=== PATIENT | male | born 1955 | race Two or more races ===

== ENCOUNTER 2021-06-16 12:29 | Inpatient (IN) | payer OTHER ==
[~2021-06-16] VITALS: Ht 177.8 cm; Wt 86.6 kg
[2021-06-16 13:26] LABS: Basophils # (auto) 0 10 ^3/uL (0-0.2); Basophils % (auto) 0.2 % (0.0-2.0); Eosinophils # (auto) 0 10 ^3/uL (0-0.8); Hematocrit 39.2 % (41.0-53.0); Hemoglobin 13.7 g/dL (13.5-17.5); Lymphocytes # (auto) 0.4 10 ^3/uL (0.4-5.4); Lymphocytes % (auto) 6.5 % (10.0-50.0); Mean Corpuscular Hemoglobin 29.4 pg (28.0-32.0); Mean Corpuscular Hgb Conc. 34.9 g/dL (32.0-36.0); Mean Corpuscular Volume 84.4 fL (80.0-100.0); Monocytes # (auto) 0.3 10 ^3/uL (0-1.3); Monocytes % (auto) 5.1 % (0.0-12.0); Neutrophils # (auto) 5.7 10 ^3/uL (1.6-8.6); Neutrophils % (auto) 88.2 % (37.0-80.0); Red Blood Cells 4.64 10^6/uL (4.5-5.90); Red Cell Distribution Width 13.8 % (11.8-14.3); White Blood Cell 6.5 10^3/uL (4.4-10.8)
[2021-06-16 13:49] LABS: Albumin 2.7 g/dL (3.4-5.0); Calcium 8.5 mg/dL (8.5-10.1); Magnesium 3.3 mg/dL (1.6-2.6); Potassium 3.9 mmol/L (3.5-5.1)
[2021-06-16 13:52] LABS: Lactic Acid w/Reflex 2.5 mmol/L (0.4-2.0)
[2021-06-16 13:54] LABS: BUN/Creatinine Ratio 28.7; Bilirubin, Total 0.8 mg/dL (0.2-1.0); Total Protein 8.1 g/dL (6.4-8.2)
[2021-06-16] MEDS ORDERED: ACETAMINOPHEN 500 MG TAB PO ONE (14:30)
[2021-06-16] MEDS ORDERED: REGENERON 1200mg/250ml NS 250 ML IV ONE (16:15)
[2021-06-16] MEDS ORDERED: MORPHINE SULFATE INJECTION 2 MG/ML SYRG IV PRN (19:30)
[2021-06-16] MEDS ORDERED: hydrALAZINE HCL 20 MG/ML VL IV PRN (19:30)
[2021-06-16] MEDS ORDERED: ONDANSETRON HCL 4 MG/2 ML VIAL IV PRN (19:30)
[2021-06-16] MEDS ORDERED: REMDESIVIR PER PHARMACY 0 ML IV SCH (19:30)
[2021-06-16] MEDS ORDERED: NITROGLYCERIN 0.4 MG SL TAB SL PRN (19:30)
[2021-06-16] MEDS ORDERED: REMDESIVIR 200 MG in NS 210ml LOADING DOSE ADULT IV ONE (20:30)
[2021-06-16 21:17] VITALS: BP 105/66
[2021-06-16] MEDS: BUDESONIDE (INHALATION) 180 MCG IH IN SCH (22:00)
[2021-06-16] MEDS: ENOXAPARIN SOD 40 MG/0.4 ML SYRINGE SC SCH (22:22)
[2021-06-16] MEDS: ALBUTEROL SULF HFA 90MCG INH 200DOSE IN PRN (22:46)
[2021-06-17] MEDS: ACETAMINOPHEN 500 MG TAB PO PRN (06:39)
[2021-06-17] MEDS: cefTRIAXone 1GM/50ML D5W 50 ML IV SCH (09:03)
[2021-06-17] MEDS: BUDESONIDE (INHALATION) 180 MCG IH IN SCH ×2 (09:18→18:32)
[2021-06-17] MEDS: ALBUTEROL SULF HFA 90MCG INH 200DOSE IN PRN ×2 (09:19→19:26)
[2021-06-17 09:56] LABS: Basophils # (auto) 0 10 ^3/uL (0-0.2); Basophils % (auto) 0.2 % (0.0-2.0); Eosinophils # (auto) 0 10 ^3/uL (0-0.8); Hematocrit 34.9 % (41.0-53.0); Hemoglobin 12.1 g/dL (13.5-17.5); Lymphocytes # (auto) 0.5 10 ^3/uL (0.4-5.4); Lymphocytes % (auto) 7.1 % (10.0-50.0); Mean Corpuscular Hgb Conc. 34.5 g/dL (32.0-36.0); Monocytes # (auto) 0.2 10 ^3/uL (0-1.3); Monocytes % (auto) 2.9 % (0.0-12.0); Neutrophils # (auto) 6.4 10 ^3/uL (1.6-8.6); Neutrophils % (auto) 89.8 % (37.0-80.0); Red Blood Cells 4.16 10^6/uL (4.5-5.90); Red Cell Distribution Width 13.7 % (11.8-14.3); White Blood Cell 7.2 10^3/uL (4.4-10.8)
[2021-06-17] MEDS: DexAMETHasone SOD PHOS 10MG/1ML VIAL INJ IV SCH (10:23)
[2021-06-17] MEDS: AZITHROMYCIN 500MG/ 250ML 250 ML IV SCH (10:23)
[2021-06-17] MEDS: PANTOPRAZOLE 40 MG TAB PO SCH (10:23)
[2021-06-17] MEDS: ZINC SULFATE 220mg CAP or TAB PO SCH (10:23)
[2021-06-17] MEDS: ASCORBIC ACID 1,000 MG TAB PO SCH (10:23)
[2021-06-17] MEDS: CHOLECALCIFEROL (VITD3) 2,000 UNIT CAP/TAB PO SCH (10:24)
[2021-06-17] MEDS: ENOXAPARIN SOD 40 MG/0.4 ML SYRINGE SC SCH ×2 (10:24→22:33)
[2021-06-17 10:51] LABS: Calcium 7.9 mg/dL (8.5-10.1); Potassium 3.7 mmol/L (3.5-5.1)
[2021-06-17 11:03] LABS: BUN/Creatinine Ratio 32.6; Bilirubin, Total 0.6 mg/dL (0.2-1.0); CRP High Sensitivity 13.2 mg/dL (< 0.3); Total Protein 6.9 g/dL (6.4-8.2)
[2021-06-17 11:29] LABS: Thyroid Stimulating Hormone 1.05 uIU/mL (0.358-3.74)
[2021-06-17] MEDS: REMDESIVIR 100mg 100 MG in SODIUM CHL 0.9% 230 ML IV SCH (14:33)
[2021-06-17 22:00] VITALS: BP 104/61
[2021-06-17] MEDS ORDERED: TOCILIZUMAB 400 MG in SODIUM CHL 0.9% 80 ML IV SCH (22:00)
[2021-06-18 05:00] VITALS: BP 120/71
[2021-06-18] MEDS: ALBUTEROL SULF HFA 90MCG INH 200DOSE IN PRN ×2 (06:11→19:46)
[2021-06-18] MEDS: BUDESONIDE (INHALATION) 180 MCG IH IN SCH ×2 (06:11→18:58)
[2021-06-18 06:21] LABS: Albumin 2.1 g/dL (3.4-5.0); Calcium 7.9 mg/dL (8.5-10.1); Potassium 3.7 mmol/L (3.5-5.1)
[2021-06-18 06:26] LABS: BUN/Creatinine Ratio 32.1; Bilirubin, Total 0.7 mg/dL (0.2-1.0); Total Protein 6.3 g/dL (6.4-8.2)
[2021-06-18 08:00] VITALS: BP 117/65
[2021-06-18 09:00] VITALS: BP 117/65
[2021-06-18] MEDS: DexAMETHasone SOD PHOS 10MG/1ML VIAL INJ IV SCH (10:31)
[2021-06-18] MEDS: cefTRIAXone 1GM/50ML D5W 50 ML IV SCH (10:31)
[2021-06-18] MEDS: AZITHROMYCIN 500MG/ 250ML 250 ML IV SCH (10:31)
[2021-06-18] MEDS: FUROSEMIDE 20 MG/2 ML VIAL IV SCH (10:31)
[2021-06-18] MEDS: ASCORBIC ACID 1,000 MG TAB PO SCH (10:32)
[2021-06-18] MEDS: CHOLECALCIFEROL (VITD3) 2,000 UNIT CAP/TAB PO SCH (10:32)
[2021-06-18] MEDS: PANTOPRAZOLE 40 MG TAB PO SCH (10:32)
[2021-06-18] MEDS: IVERMECTIN 3 MG TAB PO SCH (10:32)
[2021-06-18] MEDS: ZINC SULFATE 220mg CAP or TAB PO SCH (10:32)
[2021-06-18] MEDS: POTASSIUM CHL 10 Meq TABLET PO SCH (10:32)
[2021-06-18] MEDS: ENOXAPARIN SOD 40 MG/0.4 ML SYRINGE SC SCH ×2 (10:33→21:26)
[2021-06-18 12:31] VITALS: BP 106/75
[2021-06-18] MEDS: REMDESIVIR 100mg 100 MG in SODIUM CHL 0.9% 230 ML IV SCH (15:00)
[2021-06-18 16:31] VITALS: BP 102/63
[2021-06-18 22:12] VITALS: BP 100/69
[2021-06-19 05:31] VITALS: BP 102/54
[2021-06-19] MEDS: ALBUTEROL SULF HFA 90MCG INH 200DOSE IN PRN ×2 (05:58→22:43)
[2021-06-19] MEDS: BUDESONIDE (INHALATION) 180 MCG IH IN SCH ×2 (05:58→22:34)
[2021-06-19 06:42] LABS: Albumin 2.3 g/dL (3.4-5.0); Potassium 4.2 mmol/L (3.5-5.1)
[2021-06-19 06:48] LABS: BUN/Creatinine Ratio 39.3; Bilirubin, Total 0.7 mg/dL (0.2-1.0); Total Protein 6.2 g/dL (6.4-8.2)
[2021-06-19 08:00] VITALS: BP 111/72
[2021-06-19 09:12] VITALS: BP 111/72
[2021-06-19] MEDS: DexAMETHasone SOD PHOS 10MG/1ML VIAL INJ IV SCH (10:51)
[2021-06-19] MEDS: cefTRIAXone 1GM/50ML D5W 50 ML IV SCH (10:51)
[2021-06-19] MEDS: ZINC SULFATE 220mg CAP or TAB PO SCH (10:52)
[2021-06-19] MEDS: FUROSEMIDE 20 MG/2 ML VIAL IV SCH (10:52)
[2021-06-19] MEDS: IVERMECTIN 3 MG TAB PO SCH (10:53)
[2021-06-19] MEDS: POTASSIUM CHL 10 Meq TABLET PO SCH (10:53)
[2021-06-19] MEDS: PANTOPRAZOLE 40 MG TAB PO SCH (10:53)
[2021-06-19] MEDS: ASCORBIC ACID 1,000 MG TAB PO SCH (10:54)
[2021-06-19] MEDS: CHOLECALCIFEROL (VITD3) 2,000 UNIT CAP/TAB PO SCH (10:54)
[2021-06-19] MEDS: ENOXAPARIN SOD 40 MG/0.4 ML SYRINGE SC SCH ×2 (10:54→21:38)
[2021-06-19] MEDS: AZITHROMYCIN 500MG/ 250ML 250 ML IV SCH (12:25)
[2021-06-19 13:00] VITALS: BP 134/69
[2021-06-19] MEDS: REMDESIVIR 100mg 100 MG in SODIUM CHL 0.9% 230 ML IV SCH (14:58)
[2021-06-19 16:39] VITALS: BP 100/75
[2021-06-19 22:00] VITALS: BP 112/74
[2021-06-20 02:41] VITALS: BP 112/74
[2021-06-20 05:30] VITALS: BP 132/77
[2021-06-20] MEDS: ACETAMINOPHEN 500 MG TAB PO PRN (05:30)
[2021-06-20] MEDS: ALBUTEROL SULF HFA 90MCG INH 200DOSE IN PRN ×2 (05:44→22:50)
[2021-06-20] MEDS: BUDESONIDE (INHALATION) 180 MCG IH IN SCH ×2 (05:44→21:32)
[2021-06-20 06:30] LABS: Basophils # (auto) 0 10 ^3/uL (0-0.2); Basophils % (auto) 0.2 % (0.0-2.0); Eosinophils # (auto) 0 10 ^3/uL (0-0.8); Eosinophils % (auto) 0.2 % (0.0-7.0); Hematocrit 43.3 % (41.0-53.0); Hemoglobin 13.2 g/dL (13.5-17.5); Lymphocytes % (auto) 7.9 % (10.0-50.0); Mean Corpuscular Hemoglobin 28.4 pg (28.0-32.0); Mean Corpuscular Hgb Conc. 30.4 g/dL (32.0-36.0); Mean Corpuscular Volume 93.5 fL (80.0-100.0); Monocytes # (auto) 0.4 10 ^3/uL (0-1.3); Monocytes % (auto) 3.1 % (0.0-12.0); Neutrophils # (auto) 10.8 10 ^3/uL (1.6-8.6); Neutrophils % (auto) 88.6 % (37.0-80.0); Nucleated Red Blood Cells % 0.3 %; Red Blood Cells 4.63 10^6/uL (4.5-5.90); Red Cell Distribution Width 15.5 % (11.8-14.3); White Blood Cell 12.2 10^3/uL (4.4-10.8)
[2021-06-20 06:46] LABS: Chloride 104 mmol/L (98-107); Potassium 4.7 mmol/L (3.5-5.1); Sodium 135 mmol/L (136-145)
[2021-06-20 06:59] LABS: Alanine Aminotransferase 55 U/L (16-61); Albumin 2.2 g/dL (3.4-5.0); Alkaline Phosphatase 75 U/L (45-117); Aspartate Aminotransferase 97 U/L (15-37); BUN/Creatinine Ratio 32.9; Bilirubin, Total 0.9 mg/dL (0.2-1.0); Blood Urea Nitrogen 27 mg/dL (7-18); Calcium 7.7 mg/dL (8.5-10.1); Carbon Dioxide 21 mmol/L (21-32); GFR African American 122 mL/min; GFR Non-African American 101 mL/min; Glucose 68 mg/dL (74-106); Total Protein 6.4 g/dL (6.4-8.2)
[2021-06-20 07:09] LABS: Anion Gap 10 (5-15)
[2021-06-20 09:00] VITALS: BP 104/67
[2021-06-20] MEDS: cefTRIAXone 1GM/50ML D5W 50 ML IV SCH (09:00)
[2021-06-20] MEDS: DexAMETHasone SOD PHOS 10MG/1ML VIAL INJ IV SCH (10:24)
[2021-06-20] MEDS: CHOLECALCIFEROL (VITD3) 2,000 UNIT CAP/TAB PO SCH (10:25)
[2021-06-20] MEDS: ASCORBIC ACID 1,000 MG TAB PO SCH (10:25)
[2021-06-20] MEDS: PANTOPRAZOLE 40 MG TAB PO SCH (10:25)
[2021-06-20] MEDS: IVERMECTIN 3 MG TAB PO SCH (10:25)
[2021-06-20] MEDS: FUROSEMIDE 20 MG/2 ML VIAL IV SCH ×2 (10:25→18:00)
[2021-06-20] MEDS: POTASSIUM CHL 10 Meq TABLET PO SCH (10:25)
[2021-06-20] MEDS: AZITHROMYCIN 500MG/ 250ML 250 ML IV SCH (10:25)
[2021-06-20] MEDS: ZINC SULFATE 220mg CAP or TAB PO SCH (10:25)
[2021-06-20] MEDS: ENOXAPARIN SOD 40 MG/0.4 ML SYRINGE SC SCH ×2 (10:25→22:20)
[2021-06-20 10:31] LABS: CRP High Sensitivity > 0.950 mg/dL (< 0.3)
[2021-06-20 13:00] VITALS: BP 127/74
[2021-06-20] MEDS: REMDESIVIR 100mg 100 MG in SODIUM CHL 0.9% 230 ML IV SCH (15:00)
[2021-06-20 17:00] VITALS: BP 129/68
[2021-06-20] MEDS: HYOSCYAMINE SULF 0.125 MG ODT TAB PO PRN (19:07)
[2021-06-20 22:04] VITALS: BP 116/66
[2021-06-20] MEDS: SALINE 0.65 % NASAL SPRAY 45ML BOTTLE EACHNOSTRI SCH (22:20)
[2021-06-21 05:00] VITALS: BP 132/73
[2021-06-21] MEDS: SALINE 0.65 % NASAL SPRAY 45ML BOTTLE EACHNOSTRI SCH ×4 (06:04→21:39)
[2021-06-21] MEDS: MORPHINE SULFATE INJECTION 2 MG/ML SYRG IV PRN ×2 (06:05→21:39)
[2021-06-21] MEDS: FUROSEMIDE 20 MG/2 ML VIAL IV SCH ×2 (06:30→18:10)
[2021-06-21 07:50] LABS: Albumin 2.4 g/dL (3.4-5.0); Calcium 8.2 mg/dL (8.5-10.1); Potassium 4.4 mmol/L (3.5-5.1)
[2021-06-21 07:55] LABS: BUN/Creatinine Ratio 32.1; Bilirubin, Total 0.8 mg/dL (0.2-1.0); Total Protein 6.7 g/dL (6.4-8.2)
[2021-06-21] MEDS: ALBUTEROL SULF HFA 90MCG INH 200DOSE IN PRN ×2 (08:35→19:20)
[2021-06-21] MEDS: BUDESONIDE (INHALATION) 180 MCG IH IN SCH ×2 (08:35→19:20)
[2021-06-21] MEDS: DexAMETHasone SOD PHOS 10MG/1ML VIAL INJ IV SCH (08:40)
[2021-06-21] MEDS: ZINC SULFATE 220mg CAP or TAB PO SCH (08:40)
[2021-06-21] MEDS: cefTRIAXone 1GM/50ML D5W 50 ML IV SCH (08:40)
[2021-06-21] MEDS: POTASSIUM CHL 10 Meq TABLET PO SCH (08:41)
[2021-06-21] MEDS: PANTOPRAZOLE 40 MG TAB PO SCH (08:42)
[2021-06-21] MEDS: CHOLECALCIFEROL (VITD3) 2,000 UNIT CAP/TAB PO SCH (08:43)
[2021-06-21] MEDS: IVERMECTIN 3 MG TAB PO SCH (08:43)
[2021-06-21] MEDS: ASCORBIC ACID 1,000 MG TAB PO SCH (08:43)
[2021-06-21] MEDS: ENOXAPARIN SOD 40 MG/0.4 ML SYRINGE SC SCH (08:43)
[2021-06-21 09:00] VITALS: BP 137/70
[2021-06-21] MEDS: AZITHROMYCIN 500MG/ 250ML 250 ML IV SCH (10:00)
[2021-06-21 13:00] VITALS: BP 115/67
[2021-06-21 16:56] VITALS: BP 138/79
[2021-06-21] MEDS: REMDESIVIR 100mg 100 MG in SODIUM CHL 0.9% 230 ML IV SCH (16:59)
[2021-06-21] MEDS: DOCUSATE CALCIUM 240 MG CAP PO PRN (18:13)
[2021-06-21] MEDS: HYOSCYAMINE SULF 0.125 MG ODT TAB PO PRN (21:38)
[2021-06-21] MEDS: ENOXAPARIN SOD 100 MG/1 ML SYRINGE SC SCH (21:39)
[2021-06-21 22:00] VITALS: BP 163/74
[2021-06-22] MEDS: MORPHINE SULFATE INJECTION 2 MG/ML SYRG IV PRN ×2 (01:17→05:08)
[2021-06-22 05:00] VITALS: BP 136/65
[2021-06-22] MEDS: SALINE 0.65 % NASAL SPRAY 45ML BOTTLE EACHNOSTRI SCH ×4 (05:02→21:20)
[2021-06-22] MEDS: FUROSEMIDE 20 MG/2 ML VIAL IV SCH ×2 (05:08→17:27)
[2021-06-22 09:00] VITALS: BP 134/63
[2021-06-22 09:55] VITALS: BP 136/65
[2021-06-22] MEDS: cefTRIAXone 1GM/50ML D5W 50 ML IV SCH (11:12)
[2021-06-22] MEDS: POTASSIUM CHL 10 Meq TABLET PO SCH (11:13)
[2021-06-22] MEDS: DexAMETHasone SOD PHOS 10MG/1ML VIAL INJ IV SCH (11:13)
[2021-06-22] MEDS: PANTOPRAZOLE 40 MG TAB PO SCH (11:13)
[2021-06-22] MEDS: ZINC SULFATE 220mg CAP or TAB PO SCH (11:13)
[2021-06-22] MEDS: ASCORBIC ACID 1,000 MG TAB PO SCH (11:14)
[2021-06-22] MEDS: IVERMECTIN 3 MG TAB PO SCH (11:14)
[2021-06-22] MEDS: ENOXAPARIN SOD 100 MG/1 ML SYRINGE SC SCH ×2 (11:14→21:20)
[2021-06-22] MEDS: CHOLECALCIFEROL (VITD3) 2,000 UNIT CAP/TAB PO SCH (11:14)
[2021-06-22 13:00] VITALS: BP 137/78
[2021-06-22] MEDS: BUDESONIDE (INHALATION) 180 MCG IH IN SCH ×2 (15:23→19:16)
[2021-06-22] MEDS: ALBUTEROL SULF HFA 90MCG INH 200DOSE IN PRN ×2 (15:23→20:59)
[2021-06-22 16:56] VITALS: BP 137/64
[2021-06-22 22:00] VITALS: BP 147/76
[2021-06-23] VITALS (7 sets, daily range): BP systolic 106–147; BP diastolic 69–93
[2021-06-23] MEDS: FUROSEMIDE 20 MG/2 ML VIAL IV SCH (06:11)
[2021-06-23] MEDS: SALINE 0.65 % NASAL SPRAY 45ML BOTTLE EACHNOSTRI SCH ×4 (06:11→21:46)
[2021-06-23] MEDS: ALBUTEROL SULF HFA 90MCG INH 200DOSE IN PRN ×2 (07:19→19:11)
[2021-06-23] MEDS: BUDESONIDE (INHALATION) 180 MCG IH IN SCH ×2 (07:19→18:50)
[2021-06-23 07:20] LABS: Calcium 8.5 mg/dL (8.5-10.1); Potassium 4.6 mmol/L (3.5-5.1)
[2021-06-23 07:22] LABS: BUN/Creatinine Ratio 31.4
[2021-06-23 07:40] LABS: Basophils # (auto) 0 10 ^3/uL (0-0.2); Basophils % (auto) 0.2 % (0.0-2.0); Eosinophils # (auto) 0 10 ^3/uL (0-0.8); Eosinophils % (auto) 0.2 % (0.0-7.0); Hematocrit 42.3 % (41.0-53.0); Lymphocytes # (auto) 0.7 10 ^3/uL (0.4-5.4); Lymphocytes % (auto) 5.2 % (10.0-50.0); Mean Corpuscular Hemoglobin 27.9 pg (28.0-32.0); Mean Corpuscular Volume 84.6 fL (80.0-100.0); Monocytes # (auto) 0.2 10 ^3/uL (0-1.3); Monocytes % (auto) 1.3 % (0.0-12.0); Neutrophils # (auto) 13.1 10 ^3/uL (1.6-8.6); Neutrophils % (auto) 93.1 % (37.0-80.0); Nucleated Red Blood Cells % 0.3 %; Red Cell Distribution Width 13.8 % (11.8-14.3); White Blood Cell 14.1 10^3/uL (4.4-10.8)
[2021-06-23] MEDS: cefTRIAXone 1GM/50ML D5W 50 ML IV SCH (09:18)
[2021-06-23] MEDS: PANTOPRAZOLE 40 MG TAB PO SCH (10:15)
[2021-06-23] MEDS: ASCORBIC ACID 1,000 MG TAB PO SCH (10:15)
[2021-06-23] MEDS: DexAMETHasone SOD PHOS 10MG/1ML VIAL INJ IV SCH (10:15)
[2021-06-23] MEDS: POTASSIUM CHL 10 Meq TABLET PO SCH (10:15)
[2021-06-23] MEDS: ZINC SULFATE 220mg CAP or TAB PO SCH (10:15)
[2021-06-23] MEDS: CHOLECALCIFEROL (VITD3) 2,000 UNIT CAP/TAB PO SCH (10:16)
[2021-06-23] MEDS: ENOXAPARIN SOD 100 MG/1 ML SYRINGE SC SCH (10:16)
[2021-06-23] MEDS ORDERED: LORazepam 0.5 MG TAB PO PRN (12:45)
[2021-06-23] MEDS: LACTULOSE 20Gm/30ML SOLN PO ONE (13:17)
[2021-06-23] MEDS: APIXABAN 5 MG TAB PO SCH (21:46)
[2021-06-24] MEDS: LACTULOSE 20Gm/30ML SOLN PO ONE (00:29)
[2021-06-24 05:00] VITALS: BP 152/84
[2021-06-24] MEDS: SALINE 0.65 % NASAL SPRAY 45ML BOTTLE EACHNOSTRI SCH ×4 (06:28→22:00)
[2021-06-24] MEDS: DOCUSATE CALCIUM 240 MG CAP PO PRN (06:44)
[2021-06-24 09:10] VITALS: BP 147/86
[2021-06-24] MEDS: DexAMETHasone SOD PHOS 10MG/1ML VIAL INJ IV SCH (09:47)
[2021-06-24] MEDS: FUROSEMIDE 20 MG/2 ML VIAL IV SCH (09:47)
[2021-06-24] MEDS: cefTRIAXone 1GM/50ML D5W 50 ML IV SCH (09:47)
[2021-06-24] MEDS: ZINC SULFATE 220mg CAP or TAB PO SCH (09:48)
[2021-06-24] MEDS: PANTOPRAZOLE 40 MG TAB PO SCH (09:48)
[2021-06-24] MEDS: ASCORBIC ACID 1,000 MG TAB PO SCH (09:48)
[2021-06-24] MEDS: APIXABAN 5 MG TAB PO SCH ×2 (09:48→22:08)
[2021-06-24] MEDS: CHOLECALCIFEROL (VITD3) 2,000 UNIT CAP/TAB PO SCH (09:48)
[2021-06-24] MEDS: POTASSIUM CHL 10 Meq TABLET PO SCH (09:49)
[2021-06-24] MEDS: BUDESONIDE (INHALATION) 180 MCG IH IN SCH (10:00)
[2021-06-24] MEDS ORDERED: LACTULOSE 20Gm/30ML SOLN PO PRN (10:00)
[2021-06-24 12:00] VITALS: BP 147/86
[2021-06-24] MEDS ORDERED: LORazepam 2MG/ML-1ML VIAL IV ONE (12:30)
[2021-06-24 14:12] VITALS: BP 145/89
[2021-06-24 17:26] VITALS: BP 144/78
[2021-06-24] MEDS ORDERED: BUDESONIDE (INHALATION) 0.5 MG/2 ML NEB ONE (19:08)
[2021-06-24] MEDS ORDERED: ALBUTEROL SULF 2.5 MG/0.5ML(0.5%) NEB SOLN ONE (19:08)
[2021-06-24] MEDS: BUDESONIDE (INHALATION) 0.5 MG/2 ML NEB NEB SCH (20:10)
[2021-06-24] MEDS: ALBUTEROL SULF 2.5 MG/0.5ML(0.5%) NEB SOLN NEB PRN (20:11)
[2021-06-24 22:00] VITALS: BP 135/69
[2021-06-25 05:00] VITALS: BP 138/77
[2021-06-25] MEDS: SALINE 0.65 % NASAL SPRAY 45ML BOTTLE EACHNOSTRI SCH ×4 (06:00→22:00)
[2021-06-25] MEDS: ALBUTEROL SULF 2.5 MG/0.5ML(0.5%) NEB SOLN NEB PRN ×2 (06:06→22:31)
[2021-06-25] MEDS: BUDESONIDE (INHALATION) 0.5 MG/2 ML NEB NEB SCH ×2 (06:06→22:24)
[2021-06-25 06:52] LABS: Basophils # (auto) 0 10 ^3/uL (0-0.2); Basophils % (auto) 0.1 % (0.0-2.0); Eosinophils # (auto) 0 10 ^3/uL (0-0.8); Eosinophils % (auto) 0.2 % (0.0-7.0); Hematocrit 41.6 % (41.0-53.0); Hemoglobin 13.9 g/dL (13.5-17.5); Lymphocytes # (auto) 0.5 10 ^3/uL (0.4-5.4); Lymphocytes % (auto) 4.2 % (10.0-50.0); Mean Corpuscular Hemoglobin 27.9 pg (28.0-32.0); Mean Corpuscular Hgb Conc. 33.3 g/dL (32.0-36.0); Monocytes # (auto) 0.3 10 ^3/uL (0-1.3); Monocytes % (auto) 2.3 % (0.0-12.0); Neutrophils # (auto) 12.2 10 ^3/uL (1.6-8.6); Neutrophils % (auto) 93.2 % (37.0-80.0); Nucleated Red Blood Cells % 0.2 %; Red Blood Cells 4.96 10^6/uL (4.5-5.90); Red Cell Distribution Width 13.8 % (11.8-14.3); White Blood Cell 13.1 10^3/uL (4.4-10.8)
[2021-06-25 07:03] LABS: Potassium 4.5 mmol/L (3.5-5.1)
[2021-06-25 07:09] LABS: BUN/Creatinine Ratio 43.3; Calcium 8.1 mg/dL (8.5-10.1)
[2021-06-25 08:00] VITALS: BP 138/91
[2021-06-25] MEDS: DexAMETHasone SOD PHOS 10MG/1ML VIAL INJ IV SCH (09:18)
[2021-06-25] MEDS: cefTRIAXone 1GM/50ML D5W 50 ML IV SCH (09:18)
[2021-06-25] MEDS: FUROSEMIDE 20 MG/2 ML VIAL IV SCH (09:18)
[2021-06-25] MEDS: POTASSIUM CHL 10 Meq TABLET PO SCH (09:19)
[2021-06-25] MEDS: ZINC SULFATE 220mg CAP or TAB PO SCH (09:19)
[2021-06-25] MEDS: APIXABAN 5 MG TAB PO SCH (09:19)
[2021-06-25] MEDS: PANTOPRAZOLE 40 MG TAB PO SCH (09:19)
[2021-06-25] MEDS: ASCORBIC ACID 1,000 MG TAB PO SCH (09:19)
[2021-06-25] MEDS: FLORASTOR (S. BOULARDII) 250 MG CAP PO SCH (09:19)
[2021-06-25] MEDS: LORazepam 2MG/ML-1ML VIAL IV PRN (09:20)
[2021-06-25] MEDS: CHOLECALCIFEROL (VITD3) 2,000 UNIT CAP/TAB PO SCH (09:20)
[2021-06-25 09:55] VITALS: BP 135/74
[2021-06-25 13:34] VITALS: BP 135/74
[2021-06-25 16:58] VITALS: BP 140/74
[2021-06-25 22:00] VITALS: BP 124/78
[2021-06-25] MEDS: ENOXAPARIN SOD 100 MG/1 ML SYRINGE SC SCH (22:09)
[2021-06-26 05:00] VITALS: BP 128/69
[2021-06-26] MEDS: SALINE 0.65 % NASAL SPRAY 45ML BOTTLE EACHNOSTRI SCH ×4 (06:00→22:00)
[2021-06-26] MEDS: BUDESONIDE (INHALATION) 0.5 MG/2 ML NEB NEB SCH ×2 (06:26→22:26)
[2021-06-26] MEDS: ALBUTEROL SULF 2.5 MG/0.5ML(0.5%) NEB SOLN NEB PRN (06:26)
[2021-06-26 09:40] VITALS: BP 139/83
[2021-06-26] MEDS: ZINC SULFATE 220mg CAP or TAB PO SCH (10:00)
[2021-06-26] MEDS: DexAMETHasone SOD PHOS 10MG/1ML VIAL INJ IV SCH (10:29)
[2021-06-26] MEDS: cefTRIAXone 1GM/50ML D5W 50 ML IV SCH (10:29)
[2021-06-26] MEDS: FLORASTOR (S. BOULARDII) 250 MG CAP PO SCH (10:30)
[2021-06-26] MEDS: ASCORBIC ACID 1,000 MG TAB PO SCH (10:30)
[2021-06-26] MEDS: PANTOPRAZOLE 40 MG TAB PO SCH (10:30)
[2021-06-26] MEDS: CHOLECALCIFEROL (VITD3) 2,000 UNIT CAP/TAB PO SCH (10:30)
[2021-06-26] MEDS: POTASSIUM CHL 10 Meq TABLET PO SCH (10:30)
[2021-06-26] MEDS: ENOXAPARIN SOD 100 MG/1 ML SYRINGE SC SCH ×2 (10:31→22:13)
[2021-06-26] MEDS: FUROSEMIDE 20 MG/2 ML VIAL IV SCH (10:53)
[2021-06-26 12:47] VITALS: BP 120/77
[2021-06-26 16:46] VITALS: BP 138/81
[2021-06-26 22:00] VITALS: BP 105/69
[2021-06-27] MEDS: ENOXAPARIN SOD 100 MG/1 ML SYRINGE SC SCH ×2 (00:02→10:29)
[2021-06-27] MEDS: LORazepam 2MG/ML-1ML VIAL IV PRN ×2 (00:58→21:13)
[2021-06-27 05:00] VITALS: BP 133/77
[2021-06-27] MEDS: SALINE 0.65 % NASAL SPRAY 45ML BOTTLE EACHNOSTRI SCH ×4 (05:48→22:00)
[2021-06-27] MEDS: ALBUTEROL SULF 2.5 MG/0.5ML(0.5%) NEB SOLN NEB PRN ×2 (06:20→19:17)
[2021-06-27] MEDS: BUDESONIDE (INHALATION) 0.5 MG/2 ML NEB NEB SCH ×2 (06:20→19:17)
[2021-06-27 06:23] LABS: BUN/Creatinine Ratio 62.2; Calcium 7.9 mg/dL (8.5-10.1); Potassium 4.4 mmol/L (3.5-5.1)
[2021-06-27 08:31] VITALS: BP 129/78
[2021-06-27] MEDS: POTASSIUM CHL 10 Meq TABLET PO SCH (10:00)
[2021-06-27] MEDS: PANTOPRAZOLE 40 MG TAB PO SCH (10:00)
[2021-06-27] MEDS: ZINC SULFATE 220mg CAP or TAB PO SCH (10:00)
[2021-06-27] MEDS: ASCORBIC ACID 1,000 MG TAB PO SCH (10:00)
[2021-06-27] MEDS: CHOLECALCIFEROL (VITD3) 2,000 UNIT CAP/TAB PO SCH (10:00)
[2021-06-27] MEDS: FLORASTOR (S. BOULARDII) 250 MG CAP PO SCH (10:00)
[2021-06-27] MEDS: cefTRIAXone 1GM/50ML D5W 50 ML IV SCH (10:28)
[2021-06-27] MEDS: DexAMETHasone SOD PHOS 10MG/1ML VIAL INJ IV SCH (10:29)
[2021-06-27] MEDS: FUROSEMIDE 20 MG/2 ML VIAL IV SCH (11:22)
[2021-06-27 13:00] VITALS: BP 120/68
[2021-06-27 17:00] VITALS: BP 121/74
[2021-06-27] MEDS ORDERED: TPN PER PHARMACY 0 ML IV SCH (17:15)
[2021-06-27] MEDS ORDERED: AMINO ACID INFUSION IN D10W 1,000 ML IV NR (20:00)
[2021-06-27 22:00] VITALS: BP 116/64
[2021-06-27 23:28] LABS: INR 1.23 (0.9-1.15); Partial Thromboplastin Time 26.1 sec (23.6-33.0)
[2021-06-28] MEDS ORDERED: DEXTROSE (50%) 50ML SYRG IV SCH
[2021-06-28] MEDS: ACCU-CHEK COMFORT CURVE STRIP VI SCH ×5 (00:11→22:55)
[2021-06-28 05:00] VITALS: BP 148/79
[2021-06-28] MEDS: BUDESONIDE (INHALATION) 0.5 MG/2 ML NEB NEB SCH ×2 (05:30→19:37)
[2021-06-28] MEDS: ALBUTEROL SULF 2.5 MG/0.5ML(0.5%) NEB SOLN NEB PRN ×2 (05:30→19:37)
[2021-06-28] MEDS: InsuLIN REG 1unit/0.01ml Soln (100units/ml) SC SCH ×5 (06:00→23:00)
[2021-06-28] MEDS: SALINE 0.65 % NASAL SPRAY 45ML BOTTLE EACHNOSTRI SCH ×2 (06:10→12:00)
[2021-06-28 08:27] LABS: Basophils # (auto) 0 10 ^3/uL (0-0.2); Basophils % (auto) 0.1 % (0.0-2.0); Eosinophils # (auto) 0 10 ^3/uL (0-0.8); Eosinophils % (auto) 0.1 % (0.0-7.0); Hematocrit 42.9 % (41.0-53.0); Hemoglobin 14.6 g/dL (13.5-17.5); Lymphocytes # (auto) 0.8 10 ^3/uL (0.4-5.4); Lymphocytes % (auto) 4.3 % (10.0-50.0); Mean Corpuscular Volume 85.2 fL (80.0-100.0); Monocytes # (auto) 0.5 10 ^3/uL (0-1.3); Neutrophils # (auto) 16.2 10 ^3/uL (1.6-8.6); Neutrophils % (auto) 92.5 % (37.0-80.0); Nucleated Red Blood Cells % 0.2 %; Red Blood Cells 5.04 10^6/uL (4.5-5.90); Red Cell Distribution Width 13.9 % (11.8-14.3); White Blood Cell 17.5 10^3/uL (4.4-10.8)
[2021-06-28 08:34] LABS: Potassium 4.2 mmol/L (3.5-5.1)
[2021-06-28] MEDS: ENOXAPARIN SOD 100 MG/1 ML SYRINGE SC SCH ×2 (08:42→22:55)
[2021-06-28 08:47] LABS: Albumin 2.2 g/dL (3.4-5.0); BUN/Creatinine Ratio 73.7; Bilirubin, Total 1.1 mg/dL (0.2-1.0); Calcium 8.1 mg/dL (8.5-10.1); Magnesium 3.9 mg/dL (1.6-2.6); Phosphorus 3.1 mg/dL (2.5-4.90); Pre Albumin 10.9 mg/dL (20.0-40.0); Total Protein 6.4 g/dL (6.4-8.2)
[2021-06-28] MEDS: DexAMETHasone SOD PHOS 4 MG/1ML SDV INJ IV SCH (08:49)
[2021-06-28] MEDS: FUROSEMIDE 20 MG/2 ML VIAL IV SCH (08:54)
[2021-06-28 09:04] VITALS: BP 111/74
[2021-06-28] MEDS: POTASSIUM CHL 10 Meq TABLET PO SCH (10:00)
[2021-06-28] MEDS: PANTOPRAZOLE 40 MG TAB PO SCH (10:00)
[2021-06-28] MEDS: CHOLECALCIFEROL (VITD3) 2,000 UNIT CAP/TAB PO SCH (10:00)
[2021-06-28] MEDS: FLORASTOR (S. BOULARDII) 250 MG CAP PO SCH (10:00)
[2021-06-28] MEDS: ZINC SULFATE 220mg CAP or TAB PO SCH (10:00)
[2021-06-28] MEDS: ASCORBIC ACID 1,000 MG TAB PO SCH (10:00)
[2021-06-28 13:10] VITALS: BP 112/70
[2021-06-28] MEDS ORDERED: LIDOCAINE 1% (LOCAL ANESTH.) PF 5ml SDV ID ONE (13:30)
[2021-06-28 17:00] VITALS: BP 125/72
[2021-06-28] MEDS ORDERED: PPN PER PHARMACY IV NR ×7 (20:00)
[2021-06-28] MEDS: LORazepam 2MG/ML-1ML VIAL IV PRN (20:21)
[2021-06-28 22:00] VITALS: BP 136/65
[2021-06-29 05:00] VITALS: BP 116/76
[2021-06-29] MEDS: InsuLIN REG 1unit/0.01ml Soln (100units/ml) SC SCH ×4 (05:15→23:48)
[2021-06-29] MEDS: ACCU-CHEK COMFORT CURVE STRIP VI SCH ×4 (05:15→23:49)
[2021-06-29] MEDS: ALBUTEROL SULF 2.5 MG/0.5ML(0.5%) NEB SOLN NEB PRN (05:51)
[2021-06-29 06:46] LABS: Basophils # (auto) 0 10 ^3/uL (0-0.2); Basophils % (auto) 0.2 % (0.0-2.0); Eosinophils # (auto) 0 10 ^3/uL (0-0.8); Eosinophils % (auto) 0.1 % (0.0-7.0); Hematocrit 43.9 % (41.0-53.0); Hemoglobin 14.6 g/dL (13.5-17.5); Lymphocytes # (auto) 0.8 10 ^3/uL (0.4-5.4); Lymphocytes % (auto) 4.3 % (10.0-50.0); Mean Corpuscular Hemoglobin 28.3 pg (28.0-32.0); Mean Corpuscular Hgb Conc. 33.2 g/dL (32.0-36.0); Mean Corpuscular Volume 85.2 fL (80.0-100.0); Monocytes # (auto) 0.4 10 ^3/uL (0-1.3); Monocytes % (auto) 2.4 % (0.0-12.0); Neutrophils # (auto) 16.9 10 ^3/uL (1.6-8.6); Nucleated Red Blood Cells % 0.3 %; Red Blood Cells 5.15 10^6/uL (4.5-5.90); Red Cell Distribution Width 14.1 % (11.8-14.3); White Blood Cell 18.2 10^3/uL (4.4-10.8)
[2021-06-29 07:01] LABS: Calcium 7.9 mg/dL (8.5-10.1); Magnesium 3.7 mg/dL (1.6-2.6)
[2021-06-29 07:06] LABS: Bilirubin, Total 1.1 mg/dL (0.2-1.0); Phosphorus 2.9 mg/dL (2.5-4.90); Total Protein 5.9 g/dL (6.4-8.2)
[2021-06-29 09:00] VITALS: BP_SYST 103; BP_SYST 121; BP_DIAS 64; BP_DIAS 77
[2021-06-29] MEDS: BUDESONIDE (INHALATION) 0.5 MG/2 ML NEB NEB SCH (10:00)
[2021-06-29] MEDS: CHOLECALCIFEROL (VITD3) 2,000 UNIT CAP/TAB PO SCH (10:00)
[2021-06-29] MEDS: ASCORBIC ACID 1,000 MG TAB PO SCH (10:00)
[2021-06-29] MEDS: FLORASTOR (S. BOULARDII) 250 MG CAP PO SCH (10:00)
[2021-06-29] MEDS: DexAMETHasone SOD PHOS 4 MG/1ML SDV INJ IV SCH ×2 (10:00→10:29)
[2021-06-29] MEDS: ZINC SULFATE 220mg CAP or TAB PO SCH (10:00)
[2021-06-29] MEDS: ENOXAPARIN SOD 100 MG/1 ML SYRINGE SC SCH ×2 (10:29→22:31)
[2021-06-29] MEDS ORDERED: PANTOPRAZOLE 40 MG/10 ML VIAL INJ IV ONE (10:30)
[2021-06-29] MEDS: FUROSEMIDE 20 MG/2 ML VIAL IV SCH (10:35)
[2021-06-29] MEDS: DOXYCYCLINE 100MG/250ML 250 ML IV SCH ×2 (10:44→21:25)
[2021-06-29 12:40] VITALS: BP 102/72
[2021-06-29] MEDS: CEFEPIME 1 GM in SODIUM CHL 0.9% 50 ML IV SCH ×2 (15:06→22:00)
[2021-06-29 18:55] VITALS: BP 111/75
[2021-06-29] MEDS ORDERED: PPN PER PHARMACY IV NR ×7 (20:00)
[2021-06-29 22:06] VITALS: BP 111/75
[2021-06-29] MEDS: LORazepam 2MG/ML-1ML VIAL IV PRN (22:32)
[2021-06-30] MEDS: ALBUTEROL SULF 2.5 MG/0.5ML(0.5%) NEB SOLN NEB PRN ×3 (00:05→22:37)
[2021-06-30] MEDS: BUDESONIDE (INHALATION) 0.5 MG/2 ML NEB NEB SCH ×3 (00:05→22:37)
[2021-06-30 05:00] VITALS: BP 116/69
[2021-06-30] MEDS: ACCU-CHEK COMFORT CURVE STRIP VI SCH ×4 (05:57→23:34)
[2021-06-30] MEDS: InsuLIN REG 1unit/0.01ml Soln (100units/ml) SC SCH ×4 (05:57→23:36)
[2021-06-30] MEDS: CEFEPIME 1 GM in SODIUM CHL 0.9% 50 ML IV SCH ×3 (06:00→23:58)
[2021-06-30 08:08] LABS: Basophils # (auto) 0 10 ^3/uL (0-0.2); Basophils % (auto) 0.2 % (0.0-2.0); Eosinophils # (auto) 0.1 10 ^3/uL (0-0.8); Eosinophils % (auto) 0.5 % (0.0-7.0); Hematocrit 46.5 % (41.0-53.0); Hemoglobin 15.3 g/dL (13.5-17.5); Lymphocytes # (auto) 0.7 10 ^3/uL (0.4-5.4); Lymphocytes % (auto) 3.8 % (10.0-50.0); Mean Corpuscular Hemoglobin 28.2 pg (28.0-32.0); Mean Corpuscular Volume 85.6 fL (80.0-100.0); Monocytes # (auto) 0.2 10 ^3/uL (0-1.3); Monocytes % (auto) 1.2 % (0.0-12.0); Neutrophils # (auto) 17.5 10 ^3/uL (1.6-8.6); Neutrophils % (auto) 94.3 % (37.0-80.0); Nucleated Red Blood Cells % 0.3 %; Red Blood Cells 5.44 10^6/uL (4.5-5.90); Red Cell Distribution Width 14.4 % (11.8-14.3); White Blood Cell 18.5 10^3/uL (4.4-10.8)
[2021-06-30 08:11] LABS: Potassium 4.5 mmol/L (3.5-5.1)
[2021-06-30 08:20] LABS: BUN/Creatinine Ratio 54.7; Bilirubin, Total 1.5 mg/dL (0.2-1.0); Calcium 7.8 mg/dL (8.5-10.1); Magnesium 3.6 mg/dL (1.6-2.6); Phosphorus 2.6 mg/dL (2.5-4.90); Total Protein 6.3 g/dL (6.4-8.2)
[2021-06-30 09:00] VITALS: BP 111/73
[2021-06-30] MEDS: DexAMETHasone SOD PHOS 4 MG/1ML SDV INJ IV SCH (10:16)
[2021-06-30] MEDS: ENOXAPARIN SOD 100 MG/1 ML SYRINGE SC SCH ×2 (10:17→22:36)
[2021-06-30] MEDS: FUROSEMIDE 20 MG/2 ML VIAL IV SCH (10:17)
[2021-06-30] MEDS: PANTOPRAZOLE 40 MG/10 ML VIAL INJ IV SCH (10:17)
[2021-06-30] MEDS: DOXYCYCLINE 100MG/250ML 250 ML IV SCH ×2 (10:18→22:35)
[2021-06-30 13:00] VITALS: BP 116/75
[2021-06-30 14:00] VITALS: BP 116/75
[2021-06-30 17:00] VITALS: BP 119/70
[2021-06-30] MEDS ORDERED: PPN PER PHARMACY IV NR ×7 (20:00)
[2021-06-30] MEDS ORDERED: TPN PER PHARMACY IV NR ×7 (20:00)
[2021-06-30 22:12] VITALS: BP 100/68
[2021-06-30] MEDS: LORazepam 2MG/ML-1ML VIAL IV PRN (23:56)
[2021-07-01] VITALS (7 sets, daily range): BP systolic 106–118; BP diastolic 63–74
[2021-07-01 02:03] LABS: Potassium 3.2 mmol/L (3.5-5.1)
[2021-07-01 02:34] LABS: Albumin 1.8 g/dL (3.4-5.0); BUN/Creatinine Ratio 62.1; Calcium 7.7 mg/dL (8.5-10.1); Magnesium 3.3 mg/dL (1.6-2.6); Phosphorus 2.8 mg/dL (2.5-4.90)
[2021-07-01] MEDS: InsuLIN REG 1unit/0.01ml Soln (100units/ml) SC SCH ×4 (06:00→22:47)
[2021-07-01] MEDS: CEFEPIME 1 GM in SODIUM CHL 0.9% 50 ML IV SCH ×3 (06:09→22:46)
[2021-07-01] MEDS: ACCU-CHEK COMFORT CURVE STRIP VI SCH ×4 (06:09→22:46)
[2021-07-01] MEDS: HEPARIN SODIUM (PORCINE) 5000 UNITS/ML 1ML VIAL SC SCH ×3 (06:14→21:43)
[2021-07-01] MEDS: BUDESONIDE (INHALATION) 0.5 MG/2 ML NEB NEB SCH ×2 (06:17→18:44)
[2021-07-01] MEDS: ALBUTEROL SULF 2.5 MG/0.5ML(0.5%) NEB SOLN NEB PRN ×2 (06:18→18:44)
[2021-07-01 08:03] LABS: Basophils # (auto) 0 10 ^3/uL (0-0.2); Basophils % (auto) 0.1 % (0.0-2.0); Eosinophils # (auto) 0 10 ^3/uL (0-0.8); Eosinophils % (auto) 0.2 % (0.0-7.0); Hematocrit 42.4 % (41.0-53.0); Hemoglobin 13.8 g/dL (13.5-17.5); Lymphocytes # (auto) 0.9 10 ^3/uL (0.4-5.4); Lymphocytes % (auto) 4.8 % (10.0-50.0); Mean Corpuscular Hgb Conc. 32.6 g/dL (32.0-36.0); Monocytes # (auto) 0.3 10 ^3/uL (0-1.3); Monocytes % (auto) 1.8 % (0.0-12.0); Neutrophils # (auto) 16.6 10 ^3/uL (1.6-8.6); Neutrophils % (auto) 93.1 % (37.0-80.0); Nucleated Red Blood Cells % 0.3 %; Red Blood Cells 4.93 10^6/uL (4.5-5.90); Red Cell Distribution Width 14.4 % (11.8-14.3); White Blood Cell 17.9 10^3/uL (4.4-10.8)
[2021-07-01] MEDS ORDERED: APIXABAN 5 MG TAB PO SCH (10:00)
[2021-07-01] MEDS: FUROSEMIDE 20 MG/2 ML VIAL IV SCH (10:46)
[2021-07-01] MEDS: DexAMETHasone SOD PHOS 4 MG/1ML SDV INJ IV SCH (10:46)
[2021-07-01] MEDS: PANTOPRAZOLE 40 MG/10 ML VIAL INJ IV SCH (10:47)
[2021-07-01] MEDS: DOXYCYCLINE 100MG/250ML 250 ML IV SCH ×2 (10:47→21:44)
[2021-07-01] MEDS: POTASSIUM CHL 20MEQ/50ML 50 ML IV SCH ×2 (13:32→14:44)
[2021-07-01] MEDS: LORazepam 2MG/ML-1ML VIAL IV PRN ×2 (13:55→22:54)
[2021-07-01] MEDS ORDERED: ASPirin-EC 81 mg tab PO ONE (16:45)
[2021-07-01] MEDS ORDERED: NTG 0.1MG/HR TOPICAL PATCH TD ONE (16:45)
[2021-07-01] MEDS ORDERED: TPN PER PHARMACY IV NR ×7 (20:00)
[2021-07-02 05:00] VITALS: BP 119/69
[2021-07-02] MEDS: InsuLIN REG 1unit/0.01ml Soln (100units/ml) SC SCH ×3 (06:00→17:52)
[2021-07-02] MEDS: CEFEPIME 1 GM in SODIUM CHL 0.9% 50 ML IV SCH ×3 (06:25→21:45)
[2021-07-02] MEDS: HEPARIN SODIUM (PORCINE) 5000 UNITS/ML 1ML VIAL SC SCH ×3 (06:26→21:49)
[2021-07-02] MEDS: ACCU-CHEK COMFORT CURVE STRIP VI SCH ×3 (06:26→17:43)
[2021-07-02 06:33] LABS: Basophils # (auto) 0 10 ^3/uL (0-0.2); Basophils % (auto) 0.1 % (0.0-2.0); Eosinophils # (auto) 0 10 ^3/uL (0-0.8); Eosinophils % (auto) 0.1 % (0.0-7.0); Hemoglobin 13.2 g/dL (13.5-17.5); Lymphocytes # (auto) 0.8 10 ^3/uL (0.4-5.4); Lymphocytes % (auto) 3.9 % (10.0-50.0); Mean Corpuscular Hemoglobin 27.8 pg (28.0-32.0); Mean Corpuscular Hgb Conc. 32.1 g/dL (32.0-36.0); Mean Corpuscular Volume 86.6 fL (80.0-100.0); Monocytes # (auto) 0.5 10 ^3/uL (0-1.3); Monocytes % (auto) 2.6 % (0.0-12.0); Neutrophils % (auto) 93.3 % (37.0-80.0); Red Blood Cells 4.74 10^6/uL (4.5-5.90); Red Cell Distribution Width 14.4 % (11.8-14.3); White Blood Cell 20.4 10^3/uL (4.4-10.8)
[2021-07-02 06:37] LABS: Albumin 1.7 g/dL (3.4-5.0); Calcium 7.7 mg/dL (8.5-10.1); Magnesium 3.2 mg/dL (1.6-2.6); Potassium 3.6 mmol/L (3.5-5.1)
[2021-07-02 06:43] LABS: BUN/Creatinine Ratio 64.2; Phosphorus 2.4 mg/dL (2.5-4.90); Total Protein 5.4 g/dL (6.4-8.2)
[2021-07-02] MEDS: ALBUTEROL SULF 2.5 MG/0.5ML(0.5%) NEB SOLN NEB PRN ×2 (06:48→17:29)
[2021-07-02] MEDS: BUDESONIDE (INHALATION) 0.5 MG/2 ML NEB NEB SCH ×2 (06:48→17:29)
[2021-07-02 09:00] VITALS: BP 111/70
[2021-07-02] MEDS: ASPirin-EC 81 mg tab PO SCH (09:06)
[2021-07-02] MEDS: DexAMETHasone SOD PHOS 4 MG/1ML SDV INJ IV SCH (09:06)
[2021-07-02] MEDS: PANTOPRAZOLE 40 MG/10 ML VIAL INJ IV SCH (09:07)
[2021-07-02] MEDS: FUROSEMIDE 20 MG/2 ML VIAL IV SCH (09:23)
[2021-07-02] MEDS: DOXYCYCLINE 100MG/250ML 250 ML IV SCH (11:58)
[2021-07-02 12:54] VITALS: BP 107/72
[2021-07-02 16:37] VITALS: BP 112/73
[2021-07-02] MEDS: NTG 0.1MG/HR TOPICAL PATCH TD SCH (17:47)
[2021-07-02] MEDS: TPN PER PHARMACY IV NR ×8 (20:34)
[2021-07-02] MEDS: LORazepam 2MG/ML-1ML VIAL IV PRN (21:56)
[2021-07-02 22:00] VITALS: BP 121/74
[2021-07-03] MEDS: ACCU-CHEK COMFORT CURVE STRIP VI SCH ×3 (00:04→12:22)
[2021-07-03] MEDS: DOXYCYCLINE 100MG/250ML 250 ML IV SCH ×2 (01:10→10:16)
[2021-07-03 05:00] VITALS: BP 126/77
[2021-07-03 06:01] LABS: Basophils # (auto) 0 10 ^3/uL (0-0.2); Eosinophils # (auto) 0 10 ^3/uL (0-0.8); Eosinophils % (auto) 0.1 % (0.0-7.0); Hematocrit 41.1 % (41.0-53.0); Hemoglobin 13.6 g/dL (13.5-17.5); Lymphocytes # (auto) 0.7 10 ^3/uL (0.4-5.4); Mean Corpuscular Hemoglobin 28.4 pg (28.0-32.0); Mean Corpuscular Hgb Conc. 33.1 g/dL (32.0-36.0); Mean Corpuscular Volume 85.7 fL (80.0-100.0); Monocytes # (auto) 0.6 10 ^3/uL (0-1.3); Monocytes % (auto) 2.6 % (0.0-12.0); Neutrophils # (auto) 20.7 10 ^3/uL (1.6-8.6); Neutrophils % (auto) 94.3 % (37.0-80.0); Nucleated Red Blood Cells % 0.1 %; Red Cell Distribution Width 14.4 % (11.8-14.3); White Blood Cell 21.9 10^3/uL (4.4-10.8)
[2021-07-03 06:05] LABS: Potassium 3.6 mmol/L (3.5-5.1)
[2021-07-03] MEDS: ALBUTEROL SULF 2.5 MG/0.5ML(0.5%) NEB SOLN NEB PRN ×2 (06:20→22:03)
[2021-07-03] MEDS: BUDESONIDE (INHALATION) 0.5 MG/2 ML NEB NEB SCH ×2 (06:21→22:03)
[2021-07-03 06:35] LABS: Albumin 1.7 g/dL (3.4-5.0); BUN/Creatinine Ratio 62.7; Bilirubin, Total 0.9 mg/dL (0.2-1.0); Calcium 7.8 mg/dL (8.5-10.1); Magnesium 2.9 mg/dL (1.6-2.6); Phosphorus 2.7 mg/dL (2.5-4.90); Total Protein 5.7 g/dL (6.4-8.2)
[2021-07-03] MEDS: CEFEPIME 1 GM in SODIUM CHL 0.9% 50 ML IV SCH ×3 (06:48→21:31)
[2021-07-03] MEDS: InsuLIN REG 1unit/0.01ml Soln (100units/ml) SC SCH ×3 (06:49→12:00)
[2021-07-03] MEDS: HEPARIN SODIUM (PORCINE) 5000 UNITS/ML 1ML VIAL SC SCH ×2 (06:50→14:00)
[2021-07-03 09:00] VITALS: BP 117/77
[2021-07-03] MEDS: ASPirin-EC 81 mg tab PO SCH (10:00)
[2021-07-03] MEDS: PANTOPRAZOLE 40 MG/10 ML VIAL INJ IV SCH (10:15)
[2021-07-03] MEDS: FUROSEMIDE 20 MG/2 ML VIAL IV SCH (10:15)
[2021-07-03] MEDS: DexAMETHasone SOD PHOS 4 MG/1ML SDV INJ IV SCH (10:15)
[2021-07-03] MEDS: NTG 0.1MG/HR TOPICAL PATCH TD SCH (10:16)
[2021-07-03 13:03] VITALS: BP 122/80
[2021-07-03 17:00] VITALS: BP 113/78
[2021-07-03] MEDS: TPN PER PHARMACY IV NR ×8 (19:57)
[2021-07-03] MEDS ORDERED: TPN PER PHARMACY IV NR ×6 (20:00)
[2021-07-03] MEDS: ENOXAPARIN SOD 60 MG/0.6 ML SYRINGE SC SCH (21:31)
[2021-07-03 22:19] VITALS: BP 115/73
[2021-07-03] MEDS: LORazepam 2MG/ML-1ML VIAL IV PRN (23:58)
[2021-07-04] MEDS: DOXYCYCLINE 100MG/250ML 250 ML IV SCH ×3 (01:37→20:44)
[2021-07-04 05:00] VITALS: BP 129/78
[2021-07-04] MEDS: CEFEPIME 1 GM in SODIUM CHL 0.9% 50 ML IV SCH ×3 (05:19→22:34)
[2021-07-04] MEDS: ALBUTEROL SULF 2.5 MG/0.5ML(0.5%) NEB SOLN NEB PRN ×2 (06:25→23:13)
[2021-07-04] MEDS: BUDESONIDE (INHALATION) 0.5 MG/2 ML NEB NEB SCH ×2 (06:25→23:13)
[2021-07-04 06:43] LABS: Basophils # (auto) 0 10 ^3/uL (0-0.2); Basophils % (auto) 0.1 % (0.0-2.0); Eosinophils # (auto) 0 10 ^3/uL (0-0.8); Eosinophils % (auto) 0.1 % (0.0-7.0); Hematocrit 40.6 % (41.0-53.0); Hemoglobin 13.3 g/dL (13.5-17.5); Lymphocytes # (auto) 0.7 10 ^3/uL (0.4-5.4); Lymphocytes % (auto) 3.5 % (10.0-50.0); Mean Corpuscular Hemoglobin 28.3 pg (28.0-32.0); Mean Corpuscular Hgb Conc. 32.8 g/dL (32.0-36.0); Mean Corpuscular Volume 86.3 fL (80.0-100.0); Monocytes # (auto) 0.5 10 ^3/uL (0-1.3); Monocytes % (auto) 2.5 % (0.0-12.0); Neutrophils # (auto) 18.1 10 ^3/uL (1.6-8.6); Neutrophils % (auto) 93.8 % (37.0-80.0); Red Blood Cells 4.71 10^6/uL (4.5-5.90); Red Cell Distribution Width 14.7 % (11.8-14.3); White Blood Cell 19.3 10^3/uL (4.4-10.8)
[2021-07-04 06:49] LABS: Potassium 3.8 mmol/L (3.5-5.1)
[2021-07-04 06:58] LABS: Albumin 1.7 g/dL (3.4-5.0); BUN/Creatinine Ratio 65.2; Calcium 7.8 mg/dL (8.5-10.1); Magnesium 2.2 mg/dL (1.6-2.6); Phosphorus 2.5 mg/dL (2.5-4.90); Total Protein 5.7 g/dL (6.4-8.2)
[2021-07-04 08:00] VITALS: BP 126/77
[2021-07-04 08:54] VITALS: BP 126/77
[2021-07-04] MEDS: PANTOPRAZOLE 40 MG/10 ML VIAL INJ IV SCH (10:15)
[2021-07-04] MEDS: CLOPIDOGREL BISULFATE 75 MG TAB PO SCH (10:16)
[2021-07-04] MEDS: FUROSEMIDE 20 MG/2 ML VIAL IV SCH (10:17)
[2021-07-04] MEDS: DexAMETHasone SOD PHOS 4 MG/1ML SDV INJ IV SCH (10:17)
[2021-07-04] MEDS: ENOXAPARIN SOD 60 MG/0.6 ML SYRINGE SC SCH ×2 (10:18→22:34)
[2021-07-04 12:37] VITALS: BP 123/77
[2021-07-04 14:20] VITALS: BP 123/77
[2021-07-04 15:00] VITALS: BP 118/73
[2021-07-04] MEDS: LORazepam 2MG/ML-1ML VIAL IV PRN (18:55)
[2021-07-04] MEDS ORDERED: TPN PER PHARMACY IV NR ×8 (20:00)
[2021-07-05] MEDS: LORazepam 2MG/ML-1ML VIAL IV PRN ×3 (01:41→19:40)
[2021-07-05 05:24] VITALS: BP 124/81
[2021-07-05] MEDS: ALBUTEROL SULF 2.5 MG/0.5ML(0.5%) NEB SOLN NEB PRN (05:27)
[2021-07-05] MEDS: BUDESONIDE (INHALATION) 0.5 MG/2 ML NEB NEB SCH ×2 (05:28→22:03)
[2021-07-05] MEDS: CEFEPIME 1 GM in SODIUM CHL 0.9% 50 ML IV SCH ×3 (05:54→22:12)
[2021-07-05 06:53] LABS: Basophils # (auto) 0 10 ^3/uL (0-0.2); Basophils % (auto) 0.2 % (0.0-2.0); Eosinophils # (auto) 0 10 ^3/uL (0-0.8); Eosinophils % (auto) 0.1 % (0.0-7.0); Hematocrit 40.2 % (41.0-53.0); Hemoglobin 13.4 g/dL (13.5-17.5); Lymphocytes # (auto) 0.9 10 ^3/uL (0.4-5.4); Mean Corpuscular Hemoglobin 28.9 pg (28.0-32.0); Mean Corpuscular Hgb Conc. 33.3 g/dL (32.0-36.0); Mean Corpuscular Volume 86.7 fL (80.0-100.0); Monocytes # (auto) 0.6 10 ^3/uL (0-1.3); Monocytes % (auto) 2.5 % (0.0-12.0); Neutrophils # (auto) 20.5 10 ^3/uL (1.6-8.6); Neutrophils % (auto) 93.2 % (37.0-80.0); Red Blood Cells 4.64 10^6/uL (4.5-5.90); Red Cell Distribution Width 14.8 % (11.8-14.3)
[2021-07-05 07:16] LABS: Albumin 1.7 g/dL (3.4-5.0); Calcium 7.8 mg/dL (8.5-10.1); Magnesium 2.3 mg/dL (1.6-2.6); Potassium 3.8 mmol/L (3.5-5.1)
[2021-07-05 07:22] LABS: BUN/Creatinine Ratio 62.3; Phosphorus 2.5 mg/dL (2.5-4.90); Pre Albumin 12.2 mg/dL (20.0-40.0); Total Protein 5.7 g/dL (6.4-8.2)
[2021-07-05 08:47] VITALS: BP 113/68
[2021-07-05] MEDS: FUROSEMIDE 20 MG/2 ML VIAL IV SCH (10:25)
[2021-07-05] MEDS: PANTOPRAZOLE 40 MG/10 ML VIAL INJ IV SCH (10:26)
[2021-07-05] MEDS: CLOPIDOGREL BISULFATE 75 MG TAB PO SCH (10:26)
[2021-07-05] MEDS: DOXYCYCLINE 100MG/250ML 250 ML IV SCH (10:26)
[2021-07-05] MEDS: ENOXAPARIN SOD 60 MG/0.6 ML SYRINGE SC SCH ×2 (10:26→22:12)
[2021-07-05] MEDS ORDERED: DEXTROSE (50%) 50ML SYRG IV SCH (12:00)
[2021-07-05] MEDS: InsuLIN REG 1unit/0.01ml Soln (100units/ml) SC SCH ×2 (12:00→18:00)
[2021-07-05 13:00] VITALS: BP 113/67
[2021-07-05] MEDS: ACCU-CHEK COMFORT CURVE STRIP VI SCH ×2 (13:51→18:18)
[2021-07-05] MEDS ORDERED: FLORASTOR (S. BOULARDII) 250 MG CAP PO SCH (14:30)
[2021-07-05 16:01] LABS: Lactic Acid w/Reflex 2.4 mmol/L (0.4-2.0)
[2021-07-05 16:56] VITALS: BP 109/56
[2021-07-05] MEDS ORDERED: TPN PER PHARMACY IV NR ×7 (20:00)
[2021-07-05 21:56] VITALS: BP 119/67
[2021-07-06] MEDS: ACCU-CHEK COMFORT CURVE STRIP VI SCH ×5 (00:09→23:31)
[2021-07-06] MEDS: DOXYCYCLINE 100MG/250ML 250 ML IV SCH ×3 (02:11→21:53)
[2021-07-06] MEDS: CEFEPIME 1 GM in SODIUM CHL 0.9% 50 ML IV SCH ×3 (05:10→23:07)
[2021-07-06 05:15] VITALS: BP 122/70
[2021-07-06] MEDS: InsuLIN REG 1unit/0.01ml Soln (100units/ml) SC SCH ×5 (05:20→23:27)
[2021-07-06] MEDS: ALBUTEROL SULF 2.5 MG/0.5ML(0.5%) NEB SOLN NEB PRN ×2 (06:08→22:25)
[2021-07-06] MEDS: BUDESONIDE (INHALATION) 0.5 MG/2 ML NEB NEB SCH ×2 (06:09→22:25)
[2021-07-06] MEDS: ENOXAPARIN SOD 60 MG/0.6 ML SYRINGE SC SCH ×2 (08:23→16:22)
[2021-07-06] MEDS: FLORASTOR (S. BOULARDII) 250 MG CAP PO SCH (08:23)
[2021-07-06] MEDS: CLOPIDOGREL BISULFATE 75 MG TAB PO SCH (08:23)
[2021-07-06] MEDS: PANTOPRAZOLE 40 MG/10 ML VIAL INJ IV SCH (08:23)
[2021-07-06] MEDS: LORazepam 2MG/ML-1ML VIAL IV PRN ×2 (08:24→19:01)
[2021-07-06 09:00] VITALS: BP 123/79
[2021-07-06] MEDS: FUROSEMIDE 20 MG/2 ML VIAL IV SCH (09:56)
[2021-07-06 11:33] VITALS: BP 123/79
[2021-07-06 12:01] LABS: Basophils # (auto) 0 10 ^3/uL (0-0.2); Basophils % (auto) 0.2 % (0.0-2.0); Eosinophils # (auto) 0.1 10 ^3/uL (0-0.8); Eosinophils % (auto) 0.7 % (0.0-7.0); Hemoglobin 13.8 g/dL (13.5-17.5); Lymphocytes # (auto) 0.7 10 ^3/uL (0.4-5.4); Lymphocytes % (auto) 4.1 % (10.0-50.0); Mean Corpuscular Hemoglobin 28.9 pg (28.0-32.0); Mean Corpuscular Hgb Conc. 33.7 g/dL (32.0-36.0); Mean Corpuscular Volume 85.7 fL (80.0-100.0); Monocytes # (auto) 0.3 10 ^3/uL (0-1.3); Monocytes % (auto) 1.9 % (0.0-12.0); Neutrophils # (auto) 16.8 10 ^3/uL (1.6-8.6); Neutrophils % (auto) 93.1 % (37.0-80.0); Red Blood Cells 4.79 10^6/uL (4.5-5.90); Red Cell Distribution Width 14.6 % (11.8-14.3)
[2021-07-06 12:26] LABS: Albumin 1.6 g/dL (3.4-5.0); Calcium 7.5 mg/dL (8.5-10.1); Magnesium 2.9 mg/dL (1.6-2.6); Potassium 3.5 mmol/L (3.5-5.1)
[2021-07-06 12:30] LABS: BUN/Creatinine Ratio 57.4; Bilirubin, Total 1.1 mg/dL (0.2-1.0); Phosphorus 2.8 mg/dL (2.5-4.90)
[2021-07-06 13:00] VITALS: BP 110/60
[2021-07-06] MEDS: metroNIDAZOLE 500MG/100ML 100 ML IV SCH (17:18)
[2021-07-06 17:29] VITALS: BP 108/74
[2021-07-06] MEDS ORDERED: TPN PER PHARMACY IV NR ×9 (20:00)
[2021-07-06 21:55] VITALS: BP 119/69
[2021-07-07] MEDS: metroNIDAZOLE 500MG/100ML 100 ML IV SCH ×3 (02:59→18:18)
[2021-07-07] MEDS: LORazepam 2MG/ML-1ML VIAL IV PRN ×2 (03:05→23:13)
[2021-07-07 05:00] VITALS: BP 118/72
[2021-07-07] MEDS: InsuLIN REG 1unit/0.01ml Soln (100units/ml) SC SCH ×4 (05:32→23:13)
[2021-07-07] MEDS: ACCU-CHEK COMFORT CURVE STRIP VI SCH ×4 (05:32→23:13)
[2021-07-07] MEDS: CEFEPIME 1 GM in SODIUM CHL 0.9% 50 ML IV SCH ×3 (06:02→22:59)
[2021-07-07 06:41] LABS: Albumin 1.4 g/dL (3.4-5.0); Magnesium 2.1 mg/dL (1.6-2.6); Potassium 3.3 mmol/L (3.5-5.1)
[2021-07-07 06:46] LABS: INR 1.43 (0.9-1.15); Partial Thromboplastin Time 29.6 sec (23.6-33.0)
[2021-07-07 06:53] LABS: BUN/Creatinine Ratio 72.9; Basophils # (auto) 0 10 ^3/uL (0-0.2); Basophils % (auto) 0.1 % (0.0-2.0); CRP High Sensitivity 13.3 mg/dL (< 0.3); Eosinophils # (auto) 0.2 10 ^3/uL (0-0.8); Eosinophils % (auto) 1.1 % (0.0-7.0); Hematocrit 37.3 % (41.0-53.0); Hemoglobin 12.6 g/dL (13.5-17.5); Lymphocytes # (auto) 0.7 10 ^3/uL (0.4-5.4); Lymphocytes % (auto) 4.7 % (10.0-50.0); Mean Corpuscular Hgb Conc. 33.9 g/dL (32.0-36.0); Mean Corpuscular Volume 85.5 fL (80.0-100.0); Monocytes # (auto) 0.3 10 ^3/uL (0-1.3); Monocytes % (auto) 2.2 % (0.0-12.0); Neutrophils # (auto) 14.6 10 ^3/uL (1.6-8.6); Neutrophils % (auto) 91.9 % (37.0-80.0); Phosphorus 2.3 mg/dL (2.5-4.90); Red Blood Cells 4.36 10^6/uL (4.5-5.90); Red Cell Distribution Width 14.9 % (11.8-14.3); Total Protein 6.4 g/dL (6.4-8.2); White Blood Cell 15.9 10^3/uL (4.4-10.8)
[2021-07-07] MEDS: PANTOPRAZOLE 40 MG/10 ML VIAL INJ IV SCH (08:18)
[2021-07-07] MEDS: FLORASTOR (S. BOULARDII) 250 MG CAP PO SCH ×2 (08:18→09:12)
[2021-07-07] MEDS: DOCUSATE CALCIUM 240 MG CAP PO PRN (08:19)
[2021-07-07 09:00] VITALS: BP 117/76
[2021-07-07] MEDS: FUROSEMIDE 20 MG/2 ML VIAL IV SCH (09:24)
[2021-07-07] MEDS ORDERED: POTASSIUM PHOSP 26.4MEQ(18MMOL) IN NS 100 ML IV ONE (11:00)
[2021-07-07] MEDS ORDERED: MIDAZOLAM HCL 2MG/2ML 2ml VIAL (1mg/ml) ONE (11:45)
[2021-07-07] MEDS ORDERED: fentaNYL CITRATE 100 MCG/2 ML VL ONE (11:45)
[2021-07-07 12:50] VITALS: BP 100/72
[2021-07-07] MEDS: DOXYCYCLINE 100MG/250ML 250 ML IV SCH ×2 (13:35→21:32)
[2021-07-07] MEDS ORDERED: HYDROcodone-ACET 5/325MG TAB PO PRN (14:00)
[2021-07-07] MEDS: MORPHINE SULFATE INJECTION 2 MG/ML SYRG IV PRN (15:09)
[2021-07-07 17:00] VITALS: BP 118/78
[2021-07-07] MEDS: TPN PER PHARMACY IV NR ×7 (20:38)
[2021-07-07 21:49] VITALS: BP 128/72
[2021-07-07] MEDS: ALBUTEROL SULF 2.5 MG/0.5ML(0.5%) NEB SOLN NEB PRN (23:15)
[2021-07-07] MEDS: BUDESONIDE (INHALATION) 0.5 MG/2 ML NEB NEB SCH (23:16)
[2021-07-08] VITALS (9 sets, daily range): BP systolic 109–123; BP diastolic 71–94
[2021-07-08] MEDS: metroNIDAZOLE 500MG/100ML 100 ML IV SCH ×3 (02:39→18:55)
[2021-07-08 05:33] LABS: Basophils # (auto) 0 10 ^3/uL (0-0.2); Basophils % (auto) 0.2 % (0.0-2.0); Eosinophils # (auto) 0.2 10 ^3/uL (0-0.8); Eosinophils % (auto) 1.2 % (0.0-7.0); Hematocrit 37.4 % (41.0-53.0); Hemoglobin 12.6 g/dL (13.5-17.5); Lymphocytes # (auto) 0.6 10 ^3/uL (0.4-5.4); Lymphocytes % (auto) 4.6 % (10.0-50.0); Mean Corpuscular Hgb Conc. 33.7 g/dL (32.0-36.0); Mean Corpuscular Volume 86.2 fL (80.0-100.0); Monocytes # (auto) 0.3 10 ^3/uL (0-1.3); Monocytes % (auto) 2.5 % (0.0-12.0); Neutrophils # (auto) 12.7 10 ^3/uL (1.6-8.6); Neutrophils % (auto) 91.5 % (37.0-80.0); Red Blood Cells 4.34 10^6/uL (4.5-5.90); Red Cell Distribution Width 14.7 % (11.8-14.3); White Blood Cell 13.8 10^3/uL (4.4-10.8)
[2021-07-08 05:52] LABS: Potassium 3.7 mmol/L (3.5-5.1)
[2021-07-08 05:57] LABS: Albumin 1.5 g/dL (3.4-5.0); BUN/Creatinine Ratio 70.6; Bilirubin, Total 0.8 mg/dL (0.2-1.0); Calcium 7.7 mg/dL (8.5-10.1); Magnesium 3.1 mg/dL (1.6-2.6); Phosphorus 2.7 mg/dL (2.5-4.90); Total Protein 5.7 g/dL (6.4-8.2)
[2021-07-08] MEDS: InsuLIN REG 1unit/0.01ml Soln (100units/ml) SC SCH ×4 (06:00→23:43)
[2021-07-08] MEDS: CEFEPIME 1 GM in SODIUM CHL 0.9% 50 ML IV SCH ×3 (06:21→23:30)
[2021-07-08] MEDS: ACCU-CHEK COMFORT CURVE STRIP VI SCH ×4 (06:21→23:30)
[2021-07-08] MEDS: ALBUTEROL SULF 2.5 MG/0.5ML(0.5%) NEB SOLN NEB PRN ×2 (06:31→22:12)
[2021-07-08] MEDS: BUDESONIDE (INHALATION) 0.5 MG/2 ML NEB NEB SCH ×2 (06:33→22:12)
[2021-07-08] MEDS: LORazepam 2MG/ML-1ML VIAL IV PRN ×2 (08:43→22:26)
[2021-07-08] MEDS: MORPHINE SULFATE INJECTION 2 MG/ML SYRG IV PRN (08:44)
[2021-07-08] MEDS: PANTOPRAZOLE 40 MG/10 ML VIAL INJ IV SCH (10:45)
[2021-07-08] MEDS: DOXYCYCLINE 100MG/250ML 250 ML IV SCH ×2 (11:44→21:40)
[2021-07-08] MEDS: TPN PER PHARMACY IV NR ×7 (19:56)
[2021-07-08] MEDS ORDERED: TPN PER PHARMACY IV NR ×5 (20:00)
[2021-07-09] VITALS (7 sets, daily range): BP systolic 116–139; BP diastolic 70–81
[2021-07-09] MEDS: metroNIDAZOLE 500MG/100ML 100 ML IV SCH ×3 (02:19→17:57)
[2021-07-09] MEDS: BUDESONIDE (INHALATION) 0.5 MG/2 ML NEB NEB SCH ×2 (05:49→18:36)
[2021-07-09] MEDS: ALBUTEROL SULF 2.5 MG/0.5ML(0.5%) NEB SOLN NEB PRN ×2 (05:49→18:36)
[2021-07-09] MEDS: InsuLIN REG 1unit/0.01ml Soln (100units/ml) SC SCH ×4 (06:00→23:28)
[2021-07-09] MEDS: ACCU-CHEK COMFORT CURVE STRIP VI SCH ×4 (06:08→23:18)
[2021-07-09] MEDS: CEFEPIME 1 GM in SODIUM CHL 0.9% 50 ML IV SCH ×3 (06:09→23:24)
[2021-07-09 06:23] LABS: Basophils # (auto) 0 10 ^3/uL (0-0.2); Basophils % (auto) 0.2 % (0.0-2.0); Eosinophils # (auto) 0.2 10 ^3/uL (0-0.8); Eosinophils % (auto) 1.7 % (0.0-7.0); Hematocrit 38.8 % (41.0-53.0); Hemoglobin 12.8 g/dL (13.5-17.5); Lymphocytes # (auto) 0.4 10 ^3/uL (0.4-5.4); Lymphocytes % (auto) 3.4 % (10.0-50.0); Mean Corpuscular Hemoglobin 28.7 pg (28.0-32.0); Mean Corpuscular Hgb Conc. 33.1 g/dL (32.0-36.0); Mean Corpuscular Volume 86.7 fL (80.0-100.0); Monocytes # (auto) 0.3 10 ^3/uL (0-1.3); Monocytes % (auto) 2.5 % (0.0-12.0); Neutrophils # (auto) 12.3 10 ^3/uL (1.6-8.6); Neutrophils % (auto) 92.2 % (37.0-80.0); Nucleated Red Blood Cells % 0.1 %; Red Blood Cells 4.47 10^6/uL (4.5-5.90); Red Cell Distribution Width 14.9 % (11.8-14.3); White Blood Cell 13.3 10^3/uL (4.4-10.8)
[2021-07-09 06:39] LABS: Potassium 3.6 mmol/L (3.5-5.1)
[2021-07-09 06:45] LABS: Albumin 1.5 g/dL (3.4-5.0); BUN/Creatinine Ratio 72.7; Bilirubin, Total 0.8 mg/dL (0.2-1.0); Calcium 7.8 mg/dL (8.5-10.1); Magnesium 3.2 mg/dL (1.6-2.6); Phosphorus 2.3 mg/dL (2.5-4.90); Total Protein 5.9 g/dL (6.4-8.2)
[2021-07-09] MEDS ORDERED: LIDOCAINE VISCOUS 2% 15ML UD MT PRN (09:30)
[2021-07-09] MEDS ORDERED: POTASSIUM PHOSPHATE 26.4 MEQ in SODIUM CHL 0.9% 100 ML IV ONE (10:00)
[2021-07-09] MEDS: PANTOPRAZOLE 40 MG/10 ML VIAL INJ IV SCH (10:23)
[2021-07-09] MEDS: LORazepam 2MG/ML-1ML VIAL IV PRN ×2 (10:24→21:31)
[2021-07-09] MEDS: NYSTATIN (MOUTH-THROAT) 500,000 UNITS/5 ML SUSP MT SCH ×4 (13:02→21:47)
[2021-07-09] MEDS: DOXYCYCLINE 100MG/250ML 250 ML IV SCH ×2 (14:20→21:29)
[2021-07-09] MEDS ORDERED: TPN PER PHARMACY IV NR ×5 (20:00)
[2021-07-09] MEDS: ENOXAPARIN SOD 100 MG/1 ML SYRINGE SC SCH (21:28)
[2021-07-10] VITALS (7 sets, daily range): BP systolic 123–136; BP diastolic 78–82
[2021-07-10] MEDS: metroNIDAZOLE 500MG/100ML 100 ML IV SCH ×3 (02:31→18:00)
[2021-07-10] MEDS: ACCU-CHEK COMFORT CURVE STRIP VI SCH ×4 (05:18→23:47)
[2021-07-10] MEDS: NYSTATIN (MOUTH-THROAT) 500,000 UNITS/5 ML SUSP MT SCH ×4 (05:18→22:00)
[2021-07-10] MEDS: CEFEPIME 1 GM in SODIUM CHL 0.9% 50 ML IV SCH (05:20)
[2021-07-10] MEDS: InsuLIN REG 1unit/0.01ml Soln (100units/ml) SC SCH ×4 (05:30→23:47)
[2021-07-10] MEDS: ALBUTEROL SULF 2.5 MG/0.5ML(0.5%) NEB SOLN NEB PRN (06:07)
[2021-07-10] MEDS: BUDESONIDE (INHALATION) 0.5 MG/2 ML NEB NEB SCH ×2 (06:08→22:00)
[2021-07-10 06:49] LABS: Basophils # (auto) 0 10 ^3/uL (0-0.2); Basophils % (auto) 0.2 % (0.0-2.0); Eosinophils # (auto) 0.2 10 ^3/uL (0-0.8); Eosinophils % (auto) 1.2 % (0.0-7.0); Hematocrit 39.9 % (41.0-53.0); Hemoglobin 13.1 g/dL (13.5-17.5); Lymphocytes # (auto) 0.6 10 ^3/uL (0.4-5.4); Lymphocytes % (auto) 4.8 % (10.0-50.0); Mean Corpuscular Hemoglobin 28.7 pg (28.0-32.0); Mean Corpuscular Hgb Conc. 32.9 g/dL (32.0-36.0); Mean Corpuscular Volume 87.2 fL (80.0-100.0); Monocytes # (auto) 0.3 10 ^3/uL (0-1.3); Monocytes % (auto) 2.4 % (0.0-12.0); Neutrophils # (auto) 11.6 10 ^3/uL (1.6-8.6); Neutrophils % (auto) 91.4 % (37.0-80.0); Nucleated Red Blood Cells % 0.1 %; Red Blood Cells 4.57 10^6/uL (4.5-5.90); Red Cell Distribution Width 15.1 % (11.8-14.3); White Blood Cell 12.7 10^3/uL (4.4-10.8)
[2021-07-10 07:08] LABS: Potassium 3.4 mmol/L (3.5-5.1)
[2021-07-10 07:24] LABS: Albumin 1.4 g/dL (3.4-5.0); Bilirubin, Total 0.8 mg/dL (0.2-1.0); Calcium 8.1 mg/dL (8.5-10.1); Magnesium 2.8 mg/dL (1.6-2.6); Phosphorus 2.6 mg/dL (2.5-4.90); Total Protein 6.5 g/dL (6.4-8.2)
[2021-07-10] MEDS: MORPHINE SULFATE INJECTION 2 MG/ML SYRG IV PRN (09:05)
[2021-07-10] MEDS: PANTOPRAZOLE 40 MG/10 ML VIAL INJ IV SCH (09:08)
[2021-07-10] MEDS ORDERED: cefTRIAXone 1GM/50ML D5W 50 ML IV ONE (09:15)
[2021-07-10] MEDS: LORazepam 2MG/ML-1ML VIAL IV PRN ×2 (09:16→15:21)
[2021-07-10] MEDS: ENOXAPARIN SOD 100 MG/1 ML SYRINGE SC SCH ×2 (09:20→22:30)
[2021-07-10] MEDS ORDERED: POTASSIUM PHOSP 22MEQ(15MMOLE) in NS 100 ML IV ONE (10:30)
[2021-07-10] MEDS ORDERED: acetaZOLAMIDE SODIUM 500 MG VL IV ONE (11:30)
[2021-07-10] MEDS ORDERED: TPN PER PHARMACY IV NR ×6 (20:00)
[2021-07-11] MEDS: metroNIDAZOLE 500MG/100ML 100 ML IV SCH ×3 (02:00→17:45)
[2021-07-11 05:36] VITALS: BP 128/70
[2021-07-11] MEDS: NYSTATIN (MOUTH-THROAT) 500,000 UNITS/5 ML SUSP MT SCH ×4 (06:00→22:00)
[2021-07-11] MEDS: ACCU-CHEK COMFORT CURVE STRIP VI SCH ×4 (06:14→23:10)
[2021-07-11 06:19] LABS: Albumin 1.4 g/dL (3.4-5.0); Calcium 7.7 mg/dL (8.5-10.1); Magnesium 3.2 mg/dL (1.6-2.6); Potassium 3.4 mmol/L (3.5-5.1)
[2021-07-11] MEDS: ALBUTEROL SULF 2.5 MG/0.5ML(0.5%) NEB SOLN NEB PRN ×2 (06:22→13:35)
[2021-07-11] MEDS: BUDESONIDE (INHALATION) 0.5 MG/2 ML NEB NEB SCH ×2 (06:22→19:10)
[2021-07-11 06:24] LABS: BUN/Creatinine Ratio 70.6; Bilirubin, Total 0.9 mg/dL (0.2-1.0); Phosphorus 3.2 mg/dL (2.5-4.90); Total Protein 5.7 g/dL (6.4-8.2)
[2021-07-11 06:30] LABS: Basophils # (auto) 0 10 ^3/uL (0-0.2); Basophils % (auto) 0.3 % (0.0-2.0); Eosinophils # (auto) 0 10 ^3/uL (0-0.8); Eosinophils % (auto) 0.2 % (0.0-7.0); Hematocrit 37.5 % (41.0-53.0); Hemoglobin 12.1 g/dL (13.5-17.5); Lymphocytes # (auto) 0.7 10 ^3/uL (0.4-5.4); Lymphocytes % (auto) 5.4 % (10.0-50.0); Mean Corpuscular Hemoglobin 28.2 pg (28.0-32.0); Mean Corpuscular Hgb Conc. 32.4 g/dL (32.0-36.0); Mean Corpuscular Volume 87.1 fL (80.0-100.0); Monocytes # (auto) 0.3 10 ^3/uL (0-1.3); Monocytes % (auto) 2.5 % (0.0-12.0); Neutrophils # (auto) 12.4 10 ^3/uL (1.6-8.6); Neutrophils % (auto) 91.6 % (37.0-80.0); Nucleated Red Blood Cells % 0.1 %; Red Cell Distribution Width 15.3 % (11.8-14.3); White Blood Cell 13.5 10^3/uL (4.4-10.8)
[2021-07-11] MEDS: InsuLIN REG 1unit/0.01ml Soln (100units/ml) SC SCH ×4 (06:34→23:10)
[2021-07-11] MEDS: LORazepam 2MG/ML-1ML VIAL IV PRN ×2 (06:37→16:05)
[2021-07-11 09:00] VITALS: BP 130/79
[2021-07-11] MEDS ORDERED: POTASSIUM CHL 20MEQ/50ML 50 ML IV ONE (09:15)
[2021-07-11] MEDS: cefTRIAXone 1GM/50ML D5W 50 ML IV SCH (09:55)
[2021-07-11] MEDS: PANTOPRAZOLE 40 MG/10 ML VIAL INJ IV SCH (09:56)
[2021-07-11] MEDS: ENOXAPARIN SOD 100 MG/1 ML SYRINGE SC SCH ×2 (09:56→23:09)
[2021-07-11 13:00] VITALS: BP 117/60
[2021-07-11 17:00] VITALS: BP 118/73
[2021-07-11] MEDS ORDERED: TPN PER PHARMACY IV NR ×4 (20:00)
[2021-07-11 21:34] VITALS: BP 127/82
[2021-07-12] MEDS: LORazepam 2MG/ML-1ML VIAL IV PRN ×3 (00:21→12:04)
[2021-07-12] MEDS: metroNIDAZOLE 500MG/100ML 100 ML IV SCH ×3 (01:56→18:04)
[2021-07-12 05:22] VITALS: BP 138/98
[2021-07-12] MEDS: NYSTATIN (MOUTH-THROAT) 500,000 UNITS/5 ML SUSP MT SCH ×4 (05:28→21:34)
[2021-07-12] MEDS: InsuLIN REG 1unit/0.01ml Soln (100units/ml) SC SCH ×3 (06:00→18:00)
[2021-07-12] MEDS: ACCU-CHEK COMFORT CURVE STRIP VI SCH ×3 (06:08→18:04)
[2021-07-12] MEDS: BUDESONIDE (INHALATION) 0.5 MG/2 ML NEB NEB SCH ×2 (06:09→22:20)
[2021-07-12 09:00] VITALS: BP 123/64
[2021-07-12 09:27] LABS: Basophils # (auto) 0 10 ^3/uL (0-0.2); Basophils % (auto) 0.2 % (0.0-2.0); Eosinophils # (auto) 0.1 10 ^3/uL (0-0.8); Eosinophils % (auto) 0.5 % (0.0-7.0); Hematocrit 37.7 % (41.0-53.0); Hemoglobin 12.3 g/dL (13.5-17.5); Lymphocytes # (auto) 0.7 10 ^3/uL (0.4-5.4); Lymphocytes % (auto) 6.1 % (10.0-50.0); Mean Corpuscular Hemoglobin 28.6 pg (28.0-32.0); Mean Corpuscular Hgb Conc. 32.7 g/dL (32.0-36.0); Mean Corpuscular Volume 87.4 fL (80.0-100.0); Monocytes # (auto) 0.3 10 ^3/uL (0-1.3); Monocytes % (auto) 2.6 % (0.0-12.0); Neutrophils # (auto) 10.9 10 ^3/uL (1.6-8.6); Neutrophils % (auto) 90.6 % (37.0-80.0); Nucleated Red Blood Cells % 0.1 %; Red Blood Cells 4.31 10^6/uL (4.5-5.90); Red Cell Distribution Width 14.7 % (11.8-14.3)
[2021-07-12 09:52] LABS: Albumin 1.5 g/dL (3.4-5.0); Calcium 8.1 mg/dL (8.5-10.1); Magnesium 2.4 mg/dL (1.6-2.6); Potassium 3.7 mmol/L (3.5-5.1)
[2021-07-12 09:58] LABS: BUN/Creatinine Ratio 89.6; Phosphorus 2.6 mg/dL (2.5-4.90); Total Protein 5.8 g/dL (6.4-8.2)
[2021-07-12] MEDS ORDERED: METOPROLOL TARTRATE 1MG/1ML-5ML VIAL IV ONE (11:00)
[2021-07-12] MEDS: FUROSEMIDE 40 MG/4 ML VIAL IV SCH (11:45)
[2021-07-12] MEDS: cefTRIAXone 1GM/50ML D5W 50 ML IV SCH (11:45)
[2021-07-12] MEDS: ENOXAPARIN SOD 100 MG/1 ML SYRINGE SC SCH ×2 (11:46→21:35)
[2021-07-12] MEDS: PANTOPRAZOLE 40 MG/10 ML VIAL INJ IV SCH (11:46)
[2021-07-12 13:00] VITALS: BP 99/59
[2021-07-12] MEDS: FREE WATER GT SCH ×3 (14:02→21:34)
[2021-07-12 16:59] VITALS: BP 120/68
[2021-07-12] MEDS ORDERED: TPN PER PHARMACY IV NR ×6 (20:00)
[2021-07-12 22:41] VITALS: BP 135/97
[2021-07-13] MEDS: ACCU-CHEK COMFORT CURVE STRIP VI SCH ×4 (01:00→18:43)
[2021-07-13] MEDS: metroNIDAZOLE 500MG/100ML 100 ML IV SCH ×3 (01:54→18:42)
[2021-07-13] MEDS: FREE WATER GT SCH ×6 (01:54→22:08)
[2021-07-13] MEDS: LORazepam 2MG/ML-1ML VIAL IV PRN ×2 (02:52→11:30)
[2021-07-13 05:10] VITALS: BP 120/80
[2021-07-13 05:40] LABS: Basophils # (auto) 0 10 ^3/uL (0-0.2); Basophils % (auto) 0.2 % (0.0-2.0); Eosinophils # (auto) 0.1 10 ^3/uL (0-0.8); Eosinophils % (auto) 0.6 % (0.0-7.0); Hematocrit 39.8 % (41.0-53.0); Hemoglobin 13.1 g/dL (13.5-17.5); Lymphocytes # (auto) 0.9 10 ^3/uL (0.4-5.4); Lymphocytes % (auto) 8.1 % (10.0-50.0); Mean Corpuscular Hemoglobin 29.2 pg (28.0-32.0); Mean Corpuscular Volume 88.4 fL (80.0-100.0); Monocytes # (auto) 0.4 10 ^3/uL (0-1.3); Monocytes % (auto) 3.4 % (0.0-12.0); Neutrophils # (auto) 10.2 10 ^3/uL (1.6-8.6); Neutrophils % (auto) 87.7 % (37.0-80.0); Nucleated Red Blood Cells % 0.3 %; Red Cell Distribution Width 15.1 % (11.8-14.3); White Blood Cell 11.6 10^3/uL (4.4-10.8)
[2021-07-13] MEDS: NYSTATIN (MOUTH-THROAT) 500,000 UNITS/5 ML SUSP MT SCH ×4 (05:47→22:09)
[2021-07-13] MEDS: InsuLIN REG 1unit/0.01ml Soln (100units/ml) SC SCH ×4 (06:00→18:00)
[2021-07-13 06:11] LABS: Albumin 1.6 g/dL (3.4-5.0); BUN/Creatinine Ratio 81.8; Bilirubin, Total 0.9 mg/dL (0.2-1.0); Calcium 8.1 mg/dL (8.5-10.1); Magnesium 3.2 mg/dL (1.6-2.6); Phosphorus 3.3 mg/dL (2.5-4.90)
[2021-07-13 09:00] VITALS: BP 133/93
[2021-07-13] MEDS: cefTRIAXone 1GM/50ML D5W 50 ML IV SCH (10:27)
[2021-07-13] MEDS: PANTOPRAZOLE 40 MG/10 ML VIAL INJ IV SCH (10:28)
[2021-07-13] MEDS: ENOXAPARIN SOD 100 MG/1 ML SYRINGE SC SCH ×2 (10:29→22:09)
[2021-07-13] MEDS: BUDESONIDE (INHALATION) 0.5 MG/2 ML NEB NEB SCH ×2 (11:20→22:00)
[2021-07-13] MEDS: FUROSEMIDE 40 MG/4 ML VIAL IV SCH (11:29)
[2021-07-13 14:16] VITALS: BP 122/90
[2021-07-13 17:23] VITALS: BP 102/78
[2021-07-13 18:36] VITALS: BP 129/90
[2021-07-13] MEDS ORDERED: TPN PER PHARMACY IV NR ×6 (20:00)
[2021-07-13 22:00] VITALS: BP 112/69
[2021-07-14] VITALS (9 sets, daily range): BP systolic 110–121; BP diastolic 62–83
[2021-07-14] MEDS: ACCU-CHEK COMFORT CURVE STRIP VI SCH ×4 (00:18→18:00)
[2021-07-14] MEDS: LORazepam 2MG/ML-1ML VIAL IV PRN ×2 (00:40→17:40)
[2021-07-14] MEDS: FREE WATER GT SCH ×7 (02:47→22:08)
[2021-07-14] MEDS: metroNIDAZOLE 500MG/100ML 100 ML IV SCH ×4 (02:48→18:20)
[2021-07-14] MEDS: BUDESONIDE (INHALATION) 0.5 MG/2 ML NEB NEB SCH ×2 (05:57→19:16)
[2021-07-14] MEDS: InsuLIN REG 1unit/0.01ml Soln (100units/ml) SC SCH ×4 (06:00→18:00)
[2021-07-14] MEDS: NYSTATIN (MOUTH-THROAT) 500,000 UNITS/5 ML SUSP MT SCH ×4 (06:00→22:07)
[2021-07-14 06:05] LABS: Basophils # (auto) 0.1 10 ^3/uL (0-0.2); Basophils % (auto) 0.4 % (0.0-2.0); Eosinophils # (auto) 0.1 10 ^3/uL (0-0.8); Eosinophils % (auto) 0.5 % (0.0-7.0); Hematocrit 42.5 % (41.0-53.0); Hemoglobin 13.8 g/dL (13.5-17.5); Lymphocytes # (auto) 1.4 10 ^3/uL (0.4-5.4); Lymphocytes % (auto) 11.4 % (10.0-50.0); Mean Corpuscular Hgb Conc. 32.5 g/dL (32.0-36.0); Mean Corpuscular Volume 89.5 fL (80.0-100.0); Monocytes # (auto) 0.4 10 ^3/uL (0-1.3); Monocytes % (auto) 3.6 % (0.0-12.0); Neutrophils % (auto) 84.1 % (37.0-80.0); Red Blood Cells 4.75 10^6/uL (4.5-5.90); Red Cell Distribution Width 15.5 % (11.8-14.3); White Blood Cell 11.9 10^3/uL (4.4-10.8)
[2021-07-14 06:25] LABS: Albumin 1.7 g/dL (3.4-5.0); Calcium 7.8 mg/dL (8.5-10.1); Magnesium 3.3 mg/dL (1.6-2.6); Potassium 4.2 mmol/L (3.5-5.1)
[2021-07-14 06:30] LABS: BUN/Creatinine Ratio 77.8; Bilirubin, Total 0.9 mg/dL (0.2-1.0); Phosphorus 3.8 mg/dL (2.5-4.90); Total Protein 6.2 g/dL (6.4-8.2)
[2021-07-14] MEDS: cefTRIAXone 1GM/50ML D5W 50 ML IV SCH (10:22)
[2021-07-14] MEDS: FUROSEMIDE 40 MG/4 ML VIAL IV SCH (10:23)
[2021-07-14] MEDS: PANTOPRAZOLE 40 MG/10 ML VIAL INJ IV SCH (10:23)
[2021-07-14] MEDS: ENOXAPARIN SOD 100 MG/1 ML SYRINGE SC SCH ×2 (10:23→22:07)
[2021-07-14] MEDS ORDERED: TPN PER PHARMACY IV NR ×5 (20:00)
[2021-07-15] MEDS: ACCU-CHEK COMFORT CURVE STRIP VI SCH ×5 (00:10→23:47)
[2021-07-15] MEDS: FREE WATER GT SCH ×6 (01:40→22:00)
[2021-07-15] MEDS: metroNIDAZOLE 500MG/100ML 100 ML IV SCH ×3 (01:40→18:31)
[2021-07-15 05:00] VITALS: BP 106/81
[2021-07-15] MEDS: NYSTATIN (MOUTH-THROAT) 500,000 UNITS/5 ML SUSP MT SCH ×4 (05:26→22:00)
[2021-07-15] MEDS: InsuLIN REG 1unit/0.01ml Soln (100units/ml) SC SCH ×5 (05:26→23:47)
[2021-07-15 06:23] LABS: Basophils # (auto) 0 10 ^3/uL (0-0.2); Basophils % (auto) 0.3 % (0.0-2.0); Eosinophils # (auto) 0.1 10 ^3/uL (0-0.8); Eosinophils % (auto) 0.8 % (0.0-7.0); Hematocrit 43.8 % (41.0-53.0); Hemoglobin 14.1 g/dL (13.5-17.5); Lymphocytes # (auto) 1.2 10 ^3/uL (0.4-5.4); Lymphocytes % (auto) 9.5 % (10.0-50.0); Mean Corpuscular Hemoglobin 29.1 pg (28.0-32.0); Mean Corpuscular Hgb Conc. 32.1 g/dL (32.0-36.0); Mean Corpuscular Volume 90.5 fL (80.0-100.0); Monocytes # (auto) 0.4 10 ^3/uL (0-1.3); Monocytes % (auto) 2.9 % (0.0-12.0); Neutrophils # (auto) 10.7 10 ^3/uL (1.6-8.6); Neutrophils % (auto) 86.5 % (37.0-80.0); Nucleated Red Blood Cells % 0.9 %; Red Blood Cells 4.85 10^6/uL (4.5-5.90); Red Cell Distribution Width 16.3 % (11.8-14.3); White Blood Cell 12.3 10^3/uL (4.4-10.8)
[2021-07-15] MEDS: BUDESONIDE (INHALATION) 0.5 MG/2 ML NEB NEB SCH ×2 (06:41→21:18)
[2021-07-15 06:56] LABS: Potassium 4.2 mmol/L (3.5-5.1)
[2021-07-15 07:08] LABS: Albumin 1.6 g/dL (3.4-5.0); BUN/Creatinine Ratio 85.2; Calcium 7.8 mg/dL (8.5-10.1); Magnesium 3.7 mg/dL (1.6-2.6)
[2021-07-15] MEDS: cefTRIAXone 1GM/50ML D5W 50 ML IV SCH (10:32)
[2021-07-15] MEDS: PANTOPRAZOLE 40 MG/10 ML VIAL INJ IV SCH (10:33)
[2021-07-15] MEDS: ENOXAPARIN SOD 100 MG/1 ML SYRINGE SC SCH ×2 (10:33→22:00)
[2021-07-15] MEDS: FUROSEMIDE 40 MG/4 ML VIAL IV SCH (11:06)
[2021-07-15] MEDS: LORazepam 2MG/ML-1ML VIAL IV PRN ×2 (11:10→22:00)
[2021-07-15] MEDS ORDERED: TPN PER PHARMACY IV NR ×5 (20:00)
[2021-07-15 22:00] VITALS: BP 98/67
[2021-07-15] MEDS ORDERED: dilTIAZem 25 MG/5 ML VIAL IV ONE ×2 (22:45→22:49)
[2021-07-15] MEDS ORDERED: DIGOXIN (250MCG/ML) 2 ML AMPULE IV ONE (23:15)
[2021-07-15 23:30] VITALS: BP 79/64
[2021-07-15] MEDS ORDERED: PHENYLEPHRINE IV 250 ML IV SCH (23:45)
[2021-07-16] VITALS (12 sets, daily range): BP systolic 73–127; BP diastolic 51–69
[2021-07-16] MEDS ORDERED: DIGOXIN (250MCG/ML) 2 ML AMPULE IV ONE
[2021-07-16] MEDS ORDERED: AMIODARONE HCL 150 MG in D5W 5% 100 ML IV ONE (00:30)
[2021-07-16] MEDS ORDERED: SODIUM CHLORIDE 0.9% 250 ML IV ONE (00:45)
[2021-07-16] MEDS ORDERED: AMIODARONE 450mg/250ml AE 250 ML IV SCH (00:45)
[2021-07-16] MEDS ORDERED: AMIODARONE HCL (50 MG/ ML) 3 ML VIAL IV ONE (00:46)
[2021-07-16] MEDS: FREE WATER GT SCH ×6 (01:21→21:12)
[2021-07-16] MEDS: metroNIDAZOLE 500MG/100ML 100 ML IV SCH ×3 (02:31→18:00)
[2021-07-16] MEDS: InsuLIN REG 1unit/0.01ml Soln (100units/ml) SC SCH ×4 (05:32→23:32)
[2021-07-16] MEDS: ACCU-CHEK COMFORT CURVE STRIP VI SCH ×4 (05:32→23:33)
[2021-07-16] MEDS: NYSTATIN (MOUTH-THROAT) 500,000 UNITS/5 ML SUSP MT SCH ×4 (05:33→21:12)
[2021-07-16 05:43] LABS: Hematocrit 44.7 % (41.0-53.0); Hemoglobin 13.9 g/dL (13.5-17.5); Mean Corpuscular Hemoglobin 28.3 pg (28.0-32.0); Mean Corpuscular Hgb Conc. 31.2 g/dL (32.0-36.0); Mean Corpuscular Volume 90.8 fL (80.0-100.0); Red Blood Cells 4.92 10^6/uL (4.5-5.90); Red Cell Distribution Width 16.6 % (11.8-14.3); White Blood Cell 13.5 10^3/uL (4.4-10.8)
[2021-07-16 05:46] LABS: Albumin 1.5 g/dL (3.4-5.0); Calcium 7.6 mg/dL (8.5-10.1); Magnesium 3.2 mg/dL (1.6-2.6); Potassium 4.2 mmol/L (3.5-5.1)
[2021-07-16 05:49] LABS: BUN/Creatinine Ratio 79.1; Bilirubin, Total 1.4 mg/dL (0.2-1.0); Phosphorus 3.5 mg/dL (2.5-4.90); Total Protein 5.7 g/dL (6.4-8.2)
[2021-07-16 05:58] LABS: Basophils % (manual) 0 (0.0-2.0); Blast Cells 0; Eosinophils % (manual) 0 (0-7); Metamyelocytes % 0; Promyelocytes % 0; Reactive Lymphocytes 0
[2021-07-16] MEDS: AMIODARONE 450mg/250ml AE 250 ML IV SCH ×2 (06:49→13:32)
[2021-07-16 08:30] LABS: Band Neutrophils % (manual) 7; Lymphocytes % (manual) 6 (10.0-50.0); Monocytes % (manual) 2 (0-12); Myelocytes % 1
[2021-07-16] MEDS: cefTRIAXone 1GM/50ML D5W 50 ML IV SCH (09:37)
[2021-07-16] MEDS: PANTOPRAZOLE 40 MG/10 ML VIAL INJ IV SCH (09:38)
[2021-07-16] MEDS: ENOXAPARIN SOD 100 MG/1 ML SYRINGE SC SCH ×2 (09:38→21:27)
[2021-07-16] MEDS: FUROSEMIDE 40 MG/4 ML VIAL IV SCH (09:51)
[2021-07-16] MEDS: BUDESONIDE (INHALATION) 0.5 MG/2 ML NEB NEB SCH ×2 (10:00→22:00)
[2021-07-16] MEDS ORDERED: TPN PER PHARMACY IV NR ×4 (20:00)
[2021-07-16] MEDS: D5W 5% 1,000 ML IV SCH ×2 (20:59→21:00)
[2021-07-17] MEDS: FREE WATER GT SCH (01:36)
[2021-07-17] MEDS: metroNIDAZOLE 500MG/100ML 100 ML IV SCH (01:38)
[2021-07-17 05:00] VITALS: BP 93/54
[2021-07-17] MEDS: AMIODARONE 450mg/250ml AE 250 ML IV SCH (05:06)
[2021-07-17] MEDS ORDERED: ATROPINE SULF 1 MG/10ml SYR IV ONE (05:30)
== END 2021-07-17 05:33 | DRG 871 ==
LOC: ER 12:29 → TELE 19:19 → EDBD 19:19 → TELE-EAST 06-17 20:52 → TELE-E-ADS 06-22 15:06
PROVIDERS: ADMIT Family Medicine; ATTEND Internal Medicine Nephrology
PROC: XW033E5 Introduction of Remdesivir Anti-infective into Peripheral Vein, Percutaneous Approach, New Technology Group 5 (ICD-10-PCS; 2021-06-16)
PROC: 5A09557 Assistance with Respiratory Ventilation, Greater than 96 Consecutive Hours, Continuous Positive Airway Pressure (ICD-10-PCS; 2021-06-24)
PROC: 3E0336Z Introduction of Nutritional Substance into Peripheral Vein, Percutaneous Approach (ICD-10-PCS; 2021-06-27)
PROC: 02HV33Z Insertion of Infusion Device into Superior Vena Cava, Percutaneous Approach (ICD-10-PCS; 2021-06-28)
PROC: B548ZZA Ultrasonography of Superior Vena Cava, Guidance (ICD-10-PCS; 2021-06-28)
PROC: 0F9430Z Drainage of Gallbladder with Drainage Device, Percutaneous Approach (ICD-10-PCS; principal; 2021-07-07)
PROC: 5A0935A Assistance with Respiratory Ventilation, Less than 24 Consecutive Hours, High Flow/Velocity Cannula (ICD-10-PCS; 2021-07-12)
PROC: 0W9930Z Drainage of Right Pleural Cavity with Drainage Device, Percutaneous Approach (ICD-10-PCS; 2021-07-16)
DX: A41.89 Other specified sepsis (principal); U07.1 COVID-19; J12.82 Pneumonia due to coronavirus disease 2019; J96.01 Acute respiratory failure with hypoxia; N17.0 Acute kidney failure with tubular necrosis; I21.4 Non-ST elevation (NSTEMI) myocardial infarction; J15.212 Pneumonia due to Methicillin resistant Staphylococcus aureus; E87.1 Hypo-osmolality and hyponatremia; K81.0 Acute cholecystitis; I82.441 Acute embolism and thrombosis of right tibial vein; E87.0 Hyperosmolality and hypernatremia; J93.9 Pneumothorax, unspecified; E66.9 Obesity, unspecified; E86.0 Dehydration; D89.839 Cytokine release syndrome, grade unspecified; Z53.29 Procedure and treatment not carried out because of patient's decision for other reasons; I48.91 Unspecified atrial fibrillation; R65.20 Severe sepsis without septic shock; R79.89 Other specified abnormal findings of blood chemistry; E88.09 Other disorders of plasma-protein metabolism, not elsewhere classified; N40.0 Benign prostatic hyperplasia without lower urinary tract symptoms; Z66 Do not resuscitate; Z79.51 Long term (current) use of inhaled steroids; Z68.30 Body mass index [BMI] 30.0-30.9, adult; Z82.49 Family history of ischemic heart disease and other diseases of the circulatory system; Z79.01 Long term (current) use of anticoagulants; Z87.891 Personal history of nicotine dependence
CPT/HCPCS: 36415; 36569; 36600; 71045; 74176; 76705; 76942; 80048; 80053; 80061; 82040; 82306; 82728; 82805; 82962; 83605; 83615; 83735; 84100; 84443; 84478; 84484; 85007; 85025; 85027; 85379; 85610; 85730; 86141; 86850; 86900; 86901; 87040; 87205; 87426; 93005; 93306; 93970; 94640; 94660; 96365; C1729; C9113; G0378; J0696; J1100; J1815; J2250; J2405; J3490; J7060; J7131